=== PATIENT | female | born 1930 | race Caucasian/White ===

== ENCOUNTER → 2016-10-17 | Outpatient (CLI) | payer BC ==
[~2016-10-17] MED LIST: ASPCH81X PO; ATV/1 PO; CRS/10 PO; IRON PO; LISI-729 PO; MULT-506 PO; VITAMIN D PO
[2016-10-17 18:37] LABS: THYROID STIMULATING HORMONE 2.62 uIu/ml (0.300-4.500)
== END | disposition home or self-care (01) ==
LOC: C.LABBFT 11:28
PROVIDERS: ATTEND Physician Assistant Medical
DX: R20.0 Anesthesia of skin (principal)

== ENCOUNTER → 2016-11-19 | Outpatient (CLI) | payer BC ==
[2016-11-19 12:28] LABS: BASO ABS # 0.04 K/uL (0-0.2); COMPLETE YES; EOS % 2.1 %; HEMATOCRIT 37.8 % (37-47); LYMPH ABS # 1.37 K/uL (1.2-3.4); MEAN CELL VOLUME 94.3 fL (80-100); MEAN CORPUSCULAR HEMOGLOBIN 30.4 pg (25-34); MEAN CORPUSCULAR HGB CONC 32.3 g/dl (32-36); MEAN PLATELET VOLUME 10.2 fL (7.4-10.4); MONO % 10.5 %; NEUT % 50.4 %; PLATELET COUNT 222 K/uL (130-400); RED BLOOD COUNT 4.01 M/uL (4.2-5.4); WHITE BLOOD COUNT 3.81 K/uL (4.8-10.8)
[2016-11-19 12:35] LABS: ALT/SGPT 22 U/L (12-78); BLOOD UREA NITROGEN 18 mg/dl (7-18); BUN/CREATININE RATIO 20.2 (10-20); CALCIUM 9.5 mg/dl (8.5-10.1); CARBON DIOXIDE 30 mmol/L (21-32); CHLORIDE 105 mmol/L (98-107); CHOLESTEROL 215 mg/dl (0-200); CREATININE 0.88 mg/dl (0.60-1.20); GLUCOSE 91 mg/dl (70-99); POTASSIUM 4.3 mmol/L (3.5-5.1); SODIUM 140 mmol/L (136-145)
[2016-11-19 12:38] LABS: ALB/GLOB RATIO 1.1 (0.9-2); ALKALINE PHOSPHATASE 71 U/L (45-117); AST/SGOT 21 U/L (15-37); CHOLESTEROL/HDL RATIO 1.9; HDL CHOLESTEROL 113 mg/dl; LDL CHOLESTEROL CALCULATED 86 mg/dl; TRIGLYCERIDES 81 mg/dl (0-150); VERY LOW DENSITY LIPOPROT CALC 16 mg/dl
--- NOTE | 2016-11-26 07:29 | CODING QUERY MEDICAL NECESSITY ---
SUPPORTING DIAGNOSIS NEEDED A supporting diagnosis is required for the test/procedure performed on this patient in order for us to be reimbursed by the patient's insurance. Please provide a supporting diagnosis for the following test/procedure listed below next to the test name along with your signature. *If there is no additional diagnosis for this patient that would support the following test/procedure please document that below next to the test/procedure. Test(s)/Procedure(s) that require a supporting diagnosis: * VITAMIN B12 DIAGNOSIS: Provider Signature: Date: Thank you Brinda Dodson [facility] Information Management Once completed, please kindly fax back to [phone] For questions please call [phone]
== END | disposition home or self-care (01) ==
LOC: C.LABBFT 10:15
PROVIDERS: ATTEND Physician Assistant Medical
DX: R79.9 Abnormal finding of blood chemistry, unspecified (principal); C30.1 Malignant neoplasm of middle ear; E78.5 Hyperlipidemia, unspecified; E55.9 Vitamin D deficiency, unspecified

== ENCOUNTER → 2017-01-14 | Outpatient (CLI) | payer BC ==
--- NOTE | 2017-01-15 07:58 | MAMMOGRAPHY REPORT ---
BILATERAL DIGITAL SCREENING MAMMOGRAM WITH CAD: 01/14/2017 CLINICAL HISTORY: Routine screening. Patient has no complaints. TECHNIQUE: Bilateral CC, MLO and repeat left CC views were obtained. Current study was also evaluate d with a Computer Aided Detection (CAD) system. COMPARISON: Comparison is made to exams dated: 01/12/2016 mammogram, 01/10/2015 mammogram, 01/06/2014 m ammogram, 12/22/2012 mammogram, 12/20/2011 mammogram, and 12/10/2010 mammogram - [facility] nter. BREAST COMPOSITION: The tissue of both breasts is heterogeneously dense, which may obscure small mas ses. FINDINGS: There are minimal vascular calcifications and a few stable benign-appearing microcalcificat ions in the breasts. No suspicious mass, architectural distortion or cluster of suspicious microcalc ifications is seen. IMPRESSION: ACR BI-RADS CATEGORY 1: NEGATIVE There is no mammographic evidence of malignancy. A 1 year screening mammogram is recommended. The pa tient will receive written notification of the results. Approximately 10% of breast cancers are not detected with mammography. A negative mammographic report should not delay biopsy if a clinically suggestive mass is present. Angle Nolasco M.D. ay/:01/14/2017 15:52:36 Early Childhood Coordinator: Rama ZUNIGA)(M), [facility] letter sent: Normal 1/2 BI-RADS Code: ACR BI-RADS Category 1: Negative
== END | disposition home or self-care (01) ==
LOC: C.MAMM 12:28
PROVIDERS: ATTEND Internal Medicine
DX: Z12.31 Encounter for screening mammogram for malignant neoplasm of breast (principal)

== ENCOUNTER → 2017-03-03 | Outpatient (CLI) | payer BC ==
[2017-03-03 12:55] LABS: URINE APPEARANCE CLEAR (CLEAR); URINE BILIRUBIN NEG (NEG); URINE COLOR YELLOW; URINE NITRITE NEG (NEG); URINE PH 7.5 (4.5-7.5); URINE SPECIFIC GRAVITY 1.014 (1.000-1.030); UROBILINOGEN NEG (NEG); ZZUR CULT IF INDIC CLEAN CATCH NO
[2017-03-03 13:06] LABS: MANUAL MICROSCOPIC REQUIRED? NO; REVIEW REQ? NO
== END | disposition home or self-care (01) ==
LOC: C.LABBFT 10:21
PROVIDERS: ATTEND Nurse Practitioner
DX: R41.3 Other amnesia (principal)

== ENCOUNTER → 2017-03-10 | Outpatient (CLI) | payer BC ==
[2017-03-10 17:16] LABS: BLOOD UREA NITROGEN 15 mg/dl (7-18); CREATININE 0.81 mg/dl (0.60-1.20)
== END | disposition home or self-care (01) ==
LOC: C.LABBFT 11:34
PROVIDERS: ATTEND Nurse Practitioner
DX: R41.3 Other amnesia (principal)

== ENCOUNTER → 2017-03-17 | Outpatient (CLI) | payer BC ==
[~2017-03-17] MED LIST changes: +GADAVIST IV PRN
--- NOTE | 2017-03-17 16:47 | DIAGNOSTIC IMAGING REPORT ---
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 COMPARISON: Brain MR 04/11/2014, PET CT 04/18/2014 TECHNIQUE: Multiplanar multisequence MRI of the brain was obtained both with and without the use of 4.5 mL Gadavist FINDINGS: There is no restricted diffusion to suggest acute ischemia. Midline structures including the corpus callosum, brainstem, optic chiasm, pituitary and pineal gland are unremarkable in the sagittal T1 series. No cerebellar tonsillar herniation. Degenerative changes are seen involving the imaged cervical spine. There is moderate cerebral and cerebellar atrophy with chronic microvascular ischemic changes. Mass of the right middle ear cavity has mildly increased in size, now measuring 2.8 x 2.0 x 2.1 cm, previously measuring approximately 2.2 x 1.9 x 1.9 cm. Enhancing metastatic lesion of the right temporal lobe as seen on image 11 series 13 measuring up to 1.1 x 1.5 cm, previous a 1.3 x 1.1 cm. 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 Enhancing lesion of the inferior right cerebellar hemisphere measures 1.5 x 0.9 cm on image 16 series 13, previously 0.8 x 0.6 cm. Additional multifocal areas of enhancement are seen throughout the right cerebellar hemisphere have slightly progressed as seen on image 19 series 13. Vasogenic edema of the right temporal lobe and right cerebellar hemispheres redemonstrated. There is mild enhancement of the intracanicular portions of the 7th and 8th cranial nerves as seen on images 9 and 10 of series 10. There is thinning of the bilateral optic lenses. Chronic volume loss of the right maxillary sinus. IMPRESSION: 1. Findings compatible with progression of disease with interval enlargement of the previously noted heterogeneously enhancing mass of the right middle ear cavity. 2. 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 3. Enhancement of the intracanicular portions of the right 7th and 8th cranial nerves may reflect perineural spread of disease. 4. Atrophy with background chronic microvascular ischemic changes. The above report was generated using voice recognition software. It may contain grammatical, syntax or spelling errors. Electronically signed by: Lloyd Ayala M.D. 03/17/2017 4:45 PM Dictated Date/Time: 03/17/2017 2:11 PM
== END | disposition home or self-care (01) ==
LOC: C.MRI 12:56
PROVIDERS: ATTEND Nurse Practitioner
DX: C30.1 Malignant neoplasm of middle ear (principal); R41.3 Other amnesia; C79.31 Secondary malignant neoplasm of brain

== ENCOUNTER 2017-04-12 13:52 | Inpatient (IN) | payer BC, OTHER ==
[~2017-04-12] VITALS: Ht 160 cm; Wt 44.5 kg
[~2017-04-12 13:52] MED LIST changes: -GADAVIST IV PRN; +decadron
--- NOTE | 2017-04-12 14:13 | EMERGENCY ROOM VISIT NOTE ---
History Report prepared by Yadyibandres: Shanell Barbosa Under the Supervision of: Dr. Kenya Prakash D.O. First contact with patient: 14:00 Chief Complaint: CHEST PAIN Stated Complaint: CHEST PAIN,ABDOMINAL PAIN Nursing Triage Summary: chest pain started 1 hour ago got back from hair appt. pain in right abd and chest "just hurts". has had vertigo for past week also History of Present Illness The patient is an 86 year old female who presents to the Emergency Room with complaints of chest pain that started 2 hours prior to arrival. She is accompanied by her . She reports she had just gotten back home after a hair appointment and was eating a snack of grapes when the pain started. She rates her discomfort as a 7/10 in severity but notes it is completely resolved here in the ED. Her notes she ate eggs, a biscuit and tea for breakfast earlier today. The patient denies any shortness of breath. She admits to a history of vertigo and states her vertigo had been giving her problems this past 1 week. The patient admits her bowel movements have been "harder" for the past few days. She denies any urinary symptoms. She denies any history of previous MD's or heart issues. Her denies her looking pale or diaphoretic during the episode. Source of History: patient, spouse/significant other () Onset: 2 hours LOG CHECK SCALER Position: chest Symptom Intensity: 7/10 Timing: resolved Associated Symptoms: No diaphoresis, No SOB, No urinary symptoms Review of Systems See HPI for pertinent positives & negatives. A total of 10 systems reviewed and were otherwise negative. Past Medical & Surgical Medical Problems: (1) DVT (deep venous thrombosis) (2) GERD (gastroesophageal reflux disease) (3) Pulmonary embolism (4) Vertigo Social History Smoking Status: Former Smoker Alcohol Use: none Drug Use: none Marital Status: Housing Status: lives with family Occupation Status: retired Current/Historical Medications Scheduled Dexamethasone (Decadron), 4 MG PO TID Donepezil HCl (Donepezil HCl), 1 TAB PO DAILY Enoxaparin (Enoxaparin Sodium), 50 MG SQ PM Escitalopram Oxalate (Escitalopram Oxalate), 10 MG PO DAILY Hydralazine Hcl (Apresoline), 25 MG PO BID Lisinopril (Zestril), 5 MG PO QAM Lorazepam (Ativan), 1 MG PO HS Multivitamin (Multivitamin), 1 TAB PO QAM Pantoprazole (Pantoprazole Sodium), 40 MG PO QAM Rosuvastatin Calcium (Crestor), 10 MG PO HS Triamcinolone Acet (Aristocort 0.1%), 1 DOSE TOP DAILY Allergies Coded Allergies: No Known Allergies (Verified , `, 04/12/17) Physical Exam Vital Signs Date Time Temp Pulse Resp B/P (MAP) Pulse Ox O2 Delivery O2 Flow Rate FiO2 04/12/17 19:36 67 18 195/92 100 Room Air 04/12/17 18:44 74 16 185/90 100 Room Air 04/12/17 17:25 72 16 197/97 100 Room Air 04/12/17 15:25 70 20 163/76 100 Room Air 04/12/17 14:22 Room Air 04/12/17 14:11 74 04/12/17 13:54 36.6 77 18 161/66 98 Room Air Physical Exam GENERAL: alert, cachectic appearing, no distress, non-toxic, very hard of hearing, right sided facial droop, chronic per patient, secondary to prior radiation. EYE EXAM: normal conjunctiva, PERRL and EOM's grossly intact OROPHARYNX: no exudate, no erythema, lips, buccal mucosa, and tongue normal and mucous membranes are moist NECK: supple, no nuchal rigidity, no adenopathy, non-tender LUNGS: Clear to auscultation. Normal chest wall mechanics CHEST: No reproducible chest pain. Small tattooing from radiation noted in central chest. HEART: no murmurs, S1 normal and S2 normal ABDOMEN: abdomen soft, non-tender, normo-active bowel sounds, no masses, no rebound or guarding. BACK: Back is symmetrical on inspection and there is no deformity, no midline tenderness, no CVA tenderness. SKIN: no rashes and no bruising UPPER EXTREMITIES: upper extremities are grossly normal. LOWER EXTREMITIES: No pitting edema. NEURO EXAM: Normal sensorium, cranial nerves II-XII grossly intact, normal speech, no gross weakness of arms, no gross weakness of legs. Medical Decision & Procedures ER Provider Diagnostic Interpretation: Radiology results have been interpreted by the radiologist and reviewed by me. CHEST AND ABDOMEN 2 VIEWS HISTORY: upper abd pain, atypical chest pain COMPARISON: Chest CT 02/20/2017. FINDINGS: Mild diffuse interstitial thickening which is likely chronic. The heart is normal in size. Vertebroplasty seen at T12 is again noted. No change in the 2 cm lingular nodule. There are metallic fiducial markers adjacent to the nodule. No pleural effusions. No pneumothorax. The bowel gas pattern is unremarkable. No evidence for bowel obstruction. No pneumoperitoneum. No pneumatosis. No renal or ureteral calculi. Multiple pelvic phleboliths. Vascular calcifications are noted. Mild emphysema. IMPRESSION: 1. No acute process within the chest. 2. Stable 2 cm lingular nodule. 3. No evidence for bowel obstruction. Electronically signed by: Clarence Wills M.D. 04/12/2017 3:04 PM BILATERAL LOWER EXTREMITY VENOUS DOPPLER HISTORY: Pulmonary embolus. Assess for DVT. COMPARISON STUDY: None. FINDINGS: No DVT seen within the right lower cavity. There is nonocclusive DVT seen within the left popliteal vein. The remaining left lower extremity deep venous structures are patent. IMPRESSION: 1. No DVT within the right lower extremity. 2. Nonocclusive thrombus seen within the left popliteal vein. Electronically signed by: Clarence Wills M.D. 04/12/2017 6:12 PM CHEST CTA for PULMONARY ARTERIES CT DOSE: 425.28 mGy.cm HISTORY: Atypical chest pain. TECHNIQUE: Multiaxial CT images of the chest were performed following the intravenous administration of contrast to evaluate the pulmonary arteries. Maximal intensity projection images were also obtained. A dose lowering technique was utilized adhering to the principles of ALARA. COMPARISON STUDY: Chest CT 02/20/2017. FINDINGS: T12 vertebroplasty. Normal caliber thoracic aorta with no evidence for dissection. The heart is normal in size. No pleural effusions. Dilated left main pulmonary artery is again noted. This measures up to 3.4 cm. Mild motion artifact. This results in suboptimal evaluation of some of the segmental and subsegmental pulmonary arteries. The majority the pulmonary arteries appear patent. However, there is small peripheral filling defects seen within a few of the left lower lobe segmental/subsegmental pulmonary arteries is best seen on image 140. This is consistent with an age-indeterminate pulmonary embolus. There is also a filling defect seen within a lingular pulmonary artery on image 166 consistent with an additional embolus. No pneumothorax. Mild emphysema. Stable focal density within the medial base of the left lower lobe consistent with subsegmental atelectasis. Stable lobular 1.9 cm nodule within the lingula. No suspicious lytic or blastic osseous lesions. No mediastinal or hilar lymphadenopathy. IMPRESSION: 1. A few segmental/subsegmental pulmonary emboli seen within the lingula and left lower lobe. 2. No change in the dilated left main pulmonary artery. 3. Redemonstration of the 1.9 cm lobular nodule within the lingula. 4. Mild emphysema. Electronically signed by: Clarence Wills M.D. 04/12/2017 4:38 PM A[address]OMEN AND PELVIS CT WITH IV CONTRAST CT DOSE: HISTORY: upper abd pain TECHNIQUE: Multiaxial CT images of the abdomen and pelvis were performed following the use of intravenous contrast. A dose lowering technique was utilized adhering to the principles of ALARA. COMPARISON STUDY: Abdomen and pelvis CT 04/04/2015. FINDINGS: No pneumoperitoneum. No pneumatosis. No suspicious lytic or blastic osseous lesions. T12 vertebroplasty is again noted. Stable 13 mm left adrenal gland nodule. Moderate to severe thickening at the gastric antrum near the pylorus. This has progressed in the interval. There is also surrounding mild fat stranding. No perforation or abscess identified. The segment of wall thickening measures 3.7 cm in length. No evidence for gastric outlet obstruction at this time. Stable 1 cm hypodense lesion within the left hepatic lobe. This likely represents a cyst. The gallbladder, spleen, and pancreas are unremarkable. No hydronephrosis. The right kidney enhances normally. Stable 1 cm cyst within the left kidney. Normal right adrenal gland. No retroperitoneal lymphadenopathy. Right posterior bladder diverticulum, unchanged. Moderate calcified plaque within the normal caliber aorta and iliac arteries. Colonic diverticulosis. Normal appendix. IMPRESSION: 1. Progressive thickening of the gastric antrum/pylorus. This could represent a gastritis, peptic ulcer disease, or less likely a gastric mass. No evidence for perforation. Endoscopy is recommended for further evaluation. 2. No evidence for bowel obstruction. 3. Stable left adrenal nodule. Electronically signed by: Clarence Wills M.D. 04/12/2017 4:45 PM Laboratory Results Test 04/12/17 14:31 Prothrombin Time 10.0 SECONDS (9.0-12.0) Prothromb Time International Ratio 1.0 (0.9-1.1) D-Dimer 3080 ug/L FEU (0-500) Troponin I < 0.015 ng/ml (0-0.045) Pro-B-Type Natriuretic Peptide 310 pg/ml (0-1800) Lipase 468 U/L (73-393) Laboratory results per my review. Medications Administered Medications (Trade) Dose Ordered Sig/Zuly Route Start Time Stop Time Status Last Admin Dose Admin Enoxaparin Sodium (Lovenox Inj) 50 mg NOW STAT SQ 04/12/17 20:09 04/12/17 20:10 DC 04/12/17 20:32 50 MG ECG Indication: chest pain Rate (beats per minute): 72 Rhythm: normal sinus Findings: PVC, no ectopy ED Course 1405: The patient was evaluated in room A10. A complete history and physical exam was performed. 1645: I updated the patient on her imaging results. Her states she previously had a DVT, but has no history of PE. 1715: I discussed the patients case with Dr. Moy, [facility] Hospitalist. The patient will be further evaluated. 1725: I reevaluated the patient. I discussed my recommendation she remain in the hospital for further evaluation and management and she and her verbalized complete understanding and agreement. Her and her also note they followed with Dr. Willett of [facility] Hematology/Oncology. They are no longer pursuing chemotherapy/radiation but state her radiation had been done at [facility] in the past. 1837: I updated Dr. Mireles on doppler results and conversation with Dr. Willett. Medical Decision Differential diagnoses includes but is not limited to acute coronary syndrome, myocardial infarction, pericarditis, pulmonary embolus, aortic dissection, pneumonia, pneumothorax, musculoskeletal, shingles, esophageal. Edlerly pt with chronic malignancy of the right ear who had brief episode of abdominal/chest pain, nonradiating and with nausea but no other accompanying symptoms which resolved spontaneously prior to arrival. Labs reassuring, mild dehydration noted, pt found to have PE and DVT. Concern given mets noted on last MRI regarding anticoagulation of current condition. Discussed with Dr. Willett, feels pt can be normally anticoagulated and that she doesn't need transferred for an IVC filter. VS stable. No evidence of right heart strain. Medication Reconcilliation Current Medication List: was personally reviewed by me Blood Pressure Screening Patient's blood pressure: Elevated blood pressure Blood pressure disposition: Elevated BP felt to be situational Consults Time Called: 1710 Consulting Physician: Dr. Moy, [facility] Hospitalist Returned Call: 1715 I discussed the patients case with Dr. Moy, [facility] Hospitalist. The patient will be further evaluated. Additional Consults: Time Called: 183 Consulted Physician: Dr. Willett Returned Call: [phone] Additional Comments: Discussed pt's case with Dr. Willett. States pt's disease is stable. States she can be normally anticoagulated despite mets. Does not feel needs transferred for IVF filter. Impression Primary Impression: Chest pain Additional Impressions: Pulmonary embolism Malignant neoplasm of ear DVT (deep venous thrombosis) Scribe Attestation The scribe's documentation has been prepared under my direction and personally reviewed by me in its entirety. I confirm that the note above accurately reflects all work, treatment, procedures, and medical decision making performed by me. Departure Information Dispostion Being Evaluated By Hospitalist Prescriptions Pantoprazole (Pantoprazole Sodium) 40 Mg Tab 40 MG PO QAM for 30 Days, #30 TAB Prov: Krista Bain PA-C 04/13/17 Hydralazine Hcl (APRESOLINE) 25 Mg Tab 25 MG PO BID for 30 Days, #60 TAB Prov: Krista Bain PA-C 04/13/17 Enoxaparin (Enoxaparin Sodium) 60 Mg/0.6 Ml Inj 50 MG SQ PM for 30 Days Prov: Krista Bain PA-C 04/13/17 Referrals Fitz Serra M.D. (PCP) Patient Instructions My [facility] Problem Qualifiers Primary Impression: Chest pain Chest pain type: unspecified Qualified Codes: R07.9 - Chest pain, unspecified Additional Impressions: Pulmonary embolism Pulmonary embolism type: other Chronicity: acute Acute cor pulmonale presence: without acute cor pulmonale Qualified Codes: I26.99 - Other pulmonary embolism without acute cor pulmonale Malignant neoplasm of ear Laterality: right Qualified Codes: C44.202 - Unspecified malignant neoplasm of skin of right ear and external auricular canal DVT (deep venous thrombosis) DVT location: lower extremity Affected thrombotic vein of extremity: popliteal Chronicity: acute Laterality: left Qualified Codes: I82.432 - Acute embolism and thrombosis of left popliteal vein
[2017-04-12 14:41] LABS: BASO % 0.1 %; BASO ABS # 0.01 K/uL (0-0.2); COMPLETE YES; EOS % 0.4 %; HEMATOCRIT 34.5 % (37-47); IG% 0.2 %; LYMPH % 23.6 %; LYMPH ABS # 2.21 K/uL (1.2-3.4); MEAN CELL VOLUME 91.5 fL (80-100); MEAN CORPUSCULAR HEMOGLOBIN 30.8 pg (25-34); MEAN CORPUSCULAR HGB CONC 33.6 g/dl (32-36); MEAN PLATELET VOLUME 9.2 fL (7.4-10.4); MONO % 9.4 %; NEUT % 66.3 %; PLATELET COUNT 185 K/uL (130-400); RED BLOOD COUNT 3.77 M/uL (4.2-5.4); WHITE BLOOD COUNT 9.37 K/uL (4.8-10.8)
[2017-04-12 14:59] LABS: ALT/SGPT 28 U/L (12-78); BLOOD UREA NITROGEN 29 mg/dl (7-18); BUN/CREATININE RATIO 33.5 (10-20); CALCIUM 8.7 mg/dl (8.5-10.1); CARBON DIOXIDE 29 mmol/L (21-32); CHLORIDE 98 mmol/L (98-107); CREATININE 0.86 mg/dl (0.60-1.20); GLUCOSE 80 mg/dl (70-99); POTASSIUM 3.9 mmol/L (3.5-5.1); SODIUM 133 mmol/L (136-145)
[2017-04-12 15:04] LABS: ALKALINE PHOSPHATASE 67 U/L (45-117); AST/SGOT 17 U/L (15-37)
--- NOTE | 2017-04-12 15:06 | DIAGNOSTIC IMAGING REPORT ---
CHEST AND ABDOMEN 2 VIEWS HISTORY: upper abd pain, atypical chest pain COMPARISON: Chest CT 02/20/2017. FINDINGS: Mild diffuse interstitial thickening which is likely chronic. The heart is normal in size. Vertebroplasty seen at T12 is again noted. No change in the 2 cm lingular nodule. There are metallic fiducial markers adjacent to the nodule. No pleural effusions. No pneumothorax. The bowel gas pattern is unremarkable. No evidence for bowel obstruction. No pneumoperitoneum. No pneumatosis. No renal or ureteral calculi. Multiple pelvic phleboliths. Vascular calcifications are noted. Mild emphysema. IMPRESSION: 1. No acute process within the chest. 2. Stable 2 cm lingular nodule. 3. No evidence for bowel obstruction. Electronically signed by: Clarence Wills M.D. 04/12/2017 3:04 PM Dictated Date/Time: 04/12/2017 3:01 PM
[2017-04-12] MEDS ORDERED: OMEP20TA PO (15:41)
[2017-04-12] MEDS ORDERED: ARC5 PO (15:41)
[2017-04-12] MEDS ORDERED: LXP10 PO (15:41)
[2017-04-12] MEDS ORDERED: DXM/4 PO (15:41)
[2017-04-12] MEDS ORDERED: TRMCR130WC TOP (15:42)
[2017-04-12] MEDS ORDERED: OPTIRAY 320 IV PRN (16:30)
--- NOTE | 2017-04-12 16:39 | DIAGNOSTIC IMAGING REPORT ---
CHEST CTA for PULMONARY ARTERIES CT DOSE: 425.28 mGy.cm HISTORY: Atypical chest pain. TECHNIQUE: Multiaxial CT images of the chest were performed following the intravenous administration of contrast to evaluate the pulmonary arteries. Maximal intensity projection images were also obtained. A dose lowering technique was utilized adhering to the principles of ALARA. COMPARISON STUDY: Chest CT 02/20/2017. FINDINGS: T12 vertebroplasty. Normal caliber thoracic aorta with no evidence for dissection. The heart is normal in size. No pleural effusions. Dilated left main pulmonary artery is again noted. This measures up to 3.4 cm. Mild motion artifact. This results in suboptimal evaluation of some of the segmental and subsegmental pulmonary arteries. The majority the pulmonary arteries appear patent. However, there is small peripheral filling defects seen within a few of the left lower lobe segmental/subsegmental pulmonary arteries is best seen on image 140. This is consistent with an age-indeterminate pulmonary embolus. There is also a filling defect seen within a lingular pulmonary artery on image 166 consistent with an additional embolus. No pneumothorax. Mild emphysema. Stable focal density within the medial base of the left lower lobe consistent with subsegmental atelectasis. Stable lobular 1.9 cm nodule within the lingula. No suspicious lytic or blastic osseous lesions. No mediastinal or hilar lymphadenopathy. IMPRESSION: 1. A few segmental/subsegmental pulmonary emboli seen within the lingula and left lower lobe. 2. No change in the dilated left main pulmonary artery. 3. Redemonstration of the 1.9 cm lobular nodule within the lingula. 4. Mild emphysema. Electronically signed by: Clarence Wills M.D. 04/12/2017 4:38 PM Dictated Date/Time: 04/12/2017 4:27 PM
--- NOTE | 2017-04-12 16:46 | DIAGNOSTIC IMAGING REPORT ---
ABDOMEN AND PELVIS CT WITH IV CONTRAST CT DOSE: HISTORY: upper abd pain TECHNIQUE: Multiaxial CT images of the abdomen and pelvis were performed following the use of intravenous contrast. A dose lowering technique was utilized adhering to the principles of ALARA. COMPARISON STUDY: Abdomen and pelvis CT 04/04/2015. FINDINGS: No pneumoperitoneum. No pneumatosis. No suspicious lytic or blastic osseous lesions. T12 vertebroplasty is again noted. Stable 13 mm left adrenal gland nodule. Moderate to severe thickening at the gastric antrum near the pylorus. This has progressed in the interval. There is also surrounding mild fat stranding. No perforation or abscess identified. The segment of wall thickening measures 3.7 cm in length. No evidence for gastric outlet obstruction at this time. Stable 1 cm hypodense lesion within the left hepatic lobe. This likely represents a cyst. The gallbladder, spleen, and pancreas are unremarkable. No hydronephrosis. The right kidney enhances normally. Stable 1 cm cyst within the left kidney. Normal right adrenal gland. No retroperitoneal lymphadenopathy. Right posterior bladder diverticulum, unchanged. Moderate calcified plaque within the normal caliber aorta and iliac arteries. Colonic diverticulosis. Normal appendix. IMPRESSION: 1. Progressive thickening of the gastric antrum/pylorus. This could represent a gastritis, peptic ulcer disease, or less likely a gastric mass. No evidence for perforation. Endoscopy is recommended for further evaluation. 2. No evidence for bowel obstruction. 3. Stable left adrenal nodule. Electronically signed by: Clarence Wills M.D. 04/12/2017 4:45 PM Dictated Date/Time: 04/12/2017 4:38 PM
--- NOTE | 2017-04-12 18:14 | DIAGNOSTIC IMAGING REPORT ---
BILATERAL LOWER EXTREMITY VENOUS DOPPLER HISTORY: Pulmonary embolus. Assess for DVT. COMPARISON STUDY: None. FINDINGS: No DVT seen within the right lower cavity. There is nonocclusive DVT seen within the left popliteal vein. The remaining left lower extremity deep venous structures are patent. IMPRESSION: 1. No DVT within the right lower extremity. 2. Nonocclusive thrombus seen within the left popliteal vein. Electronically signed by: Clarence Wills M.D. 04/12/2017 6:12 PM Dictated Date/Time: 04/12/2017 6:11 PM
[2017-04-12] MEDS ORDERED: HydrALAZINE HCL 20 MG/ML VIAL IV. PRN (20:00)
[2017-04-12] MEDS ORDERED: ENOXAPARIN 60 MG/0.6 ML SYR SQ STA (20:09)
[2017-04-12] MEDS ORDERED: MAGNESIUM HYDROXIDE SUSP 30 ML UDC PO PRN (20:15)
[2017-04-12] MEDS ORDERED: ONDANSETRON INJ 2 MG/ML 2 ML VIAL IV PRN (20:15)
[2017-04-12] MEDS ORDERED: ACETAMINOPHEN 325 MG TAB PO PRN (20:15)
[2017-04-12] MEDS ORDERED: ALUMINUM/MAGNESIUM/SIMETH (MAALOX MAX) 30 ML UDC PO PRN (20:15)
[2017-04-12] MEDS ORDERED: POLYETHYLENE (MIRALAX) 17 GM PACK PO PRN (20:15)
[2017-04-12] MEDS ORDERED: ZOLPIDEM TARTRATE 5 MG TAB PO PRN ×2 (20:15)
--- NOTE | 2017-04-12 20:25 | History and Physical ---
History & Physical Date & Time of Service: Apr 12, 2017 at 19:40 Chief Complaint: Chest Pain,Abdominal Pain Primary Care Physician: Fitz Serra M.D. History of Present Illness Source: patient, family, partner 86 years old female with significant past medical history as will be mentioned below. Presented to the ED with sudden onset epigastric pain that was referred to her substernal area. Pain was localized, sudden onset, appears to be squeezing in character. No associated relieving factor. By the time she arrived to ED pain was all gone. ED physician order d-dimer, that was elevated, CT angiogram showed multiple pulmonary embolism, oxygen saturation was normal at RA Ultrasound lower extremity showed nonobstructive DVT as will be specified below. 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 Status post chemotherapy and radiation . 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 MRI of the brain last month did not reveal new brain metastases but showed some progression in her right middle ear mass and her brain metastases. heterogeneously enhancing mass of the right middle ear Past Medical/Surgical History Medical Problems: (1) DVT (deep venous thrombosis) Status: Resolved Social History Smoking Status: Former Smoker Drug Use: none Marital Status: Occupational Status: retired Immunizations History of Influenza Vaccine: N/A History of Tetanus Vaccine?: Yes History of Pneumococcal: Yes History of Hepatitis B Vaccine: No Multi-Drug Resistant Organisms History of MDRO: No Allergies Coded Allergies: No Known Allergies (Verified , `, 04/12/17) Home Medications Scheduled Aspirin (Aspirin Chewable), 81 MG PO HS Dexamethasone (Decadron), 4 MG PO TID Donepezil HCl (Donepezil HCl), 1 TAB PO DAILY Escitalopram Oxalate (Escitalopram Oxalate), 10 MG PO DAILY Lisinopril (Zestril), 5 MG PO QAM Lorazepam (Ativan), 1 MG PO HS Multivitamin (Multivitamin), 1 TAB PO QAM Omeprazole (Omeprazole), 1 TAB PO DAILY Rosuvastatin Calcium (Crestor), 10 MG PO HS Triamcinolone Acet (Aristocort 0.1%), 1 DOSE TOP DAILY Review of Systems Constitutional: No fever, No chills, No sweats, No weight loss, No weakness, No fatigue, No problem reported Eyes: No worsening of vision, No eye pain, No redness, No discharge, No diplopia, No problem reported ENT: No hearing loss, No unusual epistaxis, No nasal symptoms, No sore throat, No tinnitus, No dental problems, No trouble swallowing, No problem reported Respiratory: No cough, No sputum, No wheezing, No shortness of breath, No dyspnea on exertion, No dyspnea at rest, No hemoptysis, No problem reported Cardiovascular: + chest pain, No orthopnea, No PND, No edema, No claudication, No palpitations, No problem reported Abdomen: + pain, No nausea, No vomiting, No diarrhea, No constipation, No GI bleeding, No problem reported Musculoskeletal: No joint pain, No muscle pain, No swelling, No calf pain, No problem reported Genitourinary - Female: No dysuria, No urinary frequency, No urinary urgency, No urinary incontinence, No urinary retention, No hematuria, No dysmenorrhea, No menorrhagia, No metrorrhagia, No rash, No vaginal bleeding, No vaginal discharge, No vaginal itching, No vulvodynia, No , No problem reported Neurologic: + problem reported ( right fascial palsy), No memory loss, No paralysis, No weakness, No numbness/tingling, No vertigo, No balance problems Psychiatric: No depression symptoms, No anhedonism, No anxiety, No insomnia, No substance abuse, No problem reported Endocrine: No fatigue, No excessive thirst, No excessive urination, No problem reported Hematologic / Lymphatic: No abnormal bleeding/bruising, No clotting problems, No swollen lymph nodes, No night sweats, No problem reported Integumentary: No rash, No itch, No new/changing skin lesions, No color change , No bleeding, No problem reported Allergic / Immunologic: No environmental allergies, No seasonal allergies, No pet sensitivities, No food allergies, No hives, No frequent infections, No poor healing, No prolonged convalescence, No problem reported Physical Exam Vital Signs Date Time Temp Pulse Resp B/P (MAP) Pulse Ox O2 Delivery O2 Flow Rate FiO2 04/12/17 19:36 67 18 195/92 100 Room Air 04/12/17 18:44 74 16 185/90 100 Room Air 04/12/17 17:25 72 16 197/97 100 Room Air 04/12/17 15:25 70 20 163/76 100 Room Air 04/12/17 14:22 Room Air 04/12/17 14:11 74 04/12/17 13:54 36.6 77 18 161/66 98 Room Air General Appearance: WD/WN, no apparent distress Head: normocephalic, atraumatic Eyes: normal inspection, EOMI ENT: normal ENT inspection, + pertinent finding (decreased hearing) Neck: supple Respiratory/Chest: chest non-tender, lungs clear, normal breath sounds, no respiratory distress, no accessory muscle use Cardiovascular: regular rate, rhythm, no edema, no gallop, no JVD, no murmur Abdomen/GI: normal bowel sounds, non tender, soft, no organomegaly, no pulsatile mass Back: normal inspection Extremities/Musculoskelatal: normal inspection, no calf tenderness, normal capillary refill, no pedal edema, normal range of motion Neurologic/Psych: no motor/sensory deficits, alert, normal mood/affect, oriented x 3, + facial droop (right facial droop) Skin: normal color, warm/dry, no rash Diagnostics Laboratory Results Results Past 24 Hours Test 04/12/17 14:31 Range/Units White Blood Count 9.37 4.8-10.8 K/uL Red Blood Count 3.77 4.2-5.4 M/uL Hemoglobin 11.6 12.0-16.0 g/dL Hematocrit 34.5 37-47 % Mean Corpuscular Volume 91.5 80-100 fL Mean Corpuscular Hemoglobin 30.8 25-34 pg Mean Corpuscular Hemoglobin Concent 33.6 32-36 g/dl Platelet Count 185 130-400 K/uL Mean Platelet Volume 9.2 7.4-10.4 fL Neutrophils (%) (Auto) 66.3 % Lymphocytes (%) (Auto) 23.6 % Monocytes (%) (Auto) 9.4 % Eosinophils (%) (Auto) 0.4 % Basophils (%) (Auto) 0.1 % Neutrophils # (Auto) 6.21 1.4-6.5 K/uL Lymphocytes # (Auto) 2.21 1.2-3.4 K/uL Monocytes # (Auto) 0.88 0.11-0.59 K/uL Eosinophils # (Auto) 0.04 0-0.5 K/uL Basophils # (Auto) 0.01 0-0.2 K/uL RDW Standard Deviation 50.9 36.4-46.3 fL RDW Coefficient of Variation 15.1 11.5-14.5 % Immature Granulocyte % (Auto) 0.2 % Immature Granulocyte # (Auto) 0.02 0.00-0.02 K/uL Prothrombin Time 10.0 9.0-12.0 SECONDS Prothromb Time International Ratio 1.0 0.9-1.1 D-Dimer 3080 0-500 ug/L FEU Sodium Level 133 136-145 mmol/L Potassium Level 3.9 3.5-5.1 mmol/L Chloride Level 98 98-107 mmol/L Carbon Dioxide Level 29 21-32 mmol/L Anion Gap 6.0 3-11 mmol/L Blood Urea Nitrogen 29 7-18 mg/dl Creatinine 0.86 0.60-1.20 mg/dl Est Creatinine Clear Calc Drug Dose 34.0 ml/min Estimated GFR () 71.4 Estimated GFR (Non- 61.6 BUN/Creatinine Ratio 33.5 10-20 Random Glucose 80 70-99 mg/dl Calcium Level 8.7 8.5-10.1 mg/dl Total Bilirubin 0.6 0.2-1 mg/dl Aspartate Amino Transf (AST/SGOT) 17 15-37 U/L Alanine Aminotransferase (ALT/SGPT) 28 12-78 U/L Alkaline Phosphatase 67 45-117 U/L Troponin I < 0.015 0-0.045 ng/ml Pro-B-Type Natriuretic Peptide 310 0-1800 pg/ml Total Protein 6.8 6.4-8.2 gm/dl Albumin 3.4 3.4-5.0 gm/dl Globulin 3.4 2.5-4.0 gm/dl Albumin/Globulin Ratio 1.0 0.9-2 Lipase 468 73-393 U/L Impression Assessment and Plan left segmental/subsegmental pulmonary emboli Left lower extremity nonobstructive DVT 1.9 cm lobular nodule within the lingula on chest CTA Thickening of pylorus/antrum, could represent peptic ulcer disease versus unlikely mass 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 Willett, regarding her anticoagulation Appears that the MRI done last month that reported progression in her brain metastases was comparing the images with another one in 2014. Based on more recent comparison there appears to be no progression in her brain metastasis. Despite of risk of bleeding that the patient and the family understands, Dr. Willett thought that the benefit of anticoagulation would outweighs the risk. I explained to the family the potential risk of bleeding. Both Dr. Willett and myself agreed to anticoagulate her with Lovenox in order to underdose her rather than full dose anticoagulation with heparin I also ordered antifactor X level 4 hours after the Lovenox dose, the goal for anticoagulation is too slightly underdose her. Ilana patient should receive protamine sulfate at the first sign of deterioration. I also added hydralazine for her home antihypertensive medication/which is lisinopril in order to better control her pressure while she is on anticoagulation. If she do well then maybe in 1 or 2 days she can be discharged on also underdosing with Eliquis 2.5 twice a day, as she is 86 and her weight is only 45 kg, also worth mentioning that she has normal muscle mass and creatinine level is not a true representation of her renal function. Her 1.9 cm lung nodule, her thickening of her antrum and pylorus of the stomach can be addressed after her anticoagulation is stabilized. We'll order labs for a.m. Further recommendation will follow
[2017-04-12 20:55] VITALS: BP 198/89; PULSE 74; TEMP 36.7; O2SAT 99; Ht 160 cm; Wt 44.5 kg
[2017-04-12] MEDS ORDERED: LORAZEPAM 1 MG TAB PO SCH (21:00)
[2017-04-12] MEDS ORDERED: ROSUVASTATIN CALCIUM 10 MG TAB PO SCH (21:00)
[2017-04-12] MEDS: DEXAMETHASONE 4 MG TAB PO SCH (22:34)
[2017-04-13 00:16] VITALS: BP 106/52; PULSE 70; TEMP 36.7; O2SAT 98
[2017-04-13 04:20] VITALS: BP 130/65; PULSE 69; TEMP 36.4; O2SAT 98
[2017-04-13 06:07] LABS: COMPLETE YES; EOS % 0.2 %; HEMATOCRIT 32.2 % (37-47); IG% 0.2 %; LYMPH ABS # 0.71 K/uL (1.2-3.4); MEAN CELL VOLUME 90.4 fL (80-100); MEAN CORPUSCULAR HEMOGLOBIN 30.6 pg (25-34); MEAN CORPUSCULAR HGB CONC 33.9 g/dl (32-36); MEAN PLATELET VOLUME 9.4 fL (7.4-10.4); NEUT % 84.6 %; PLATELET COUNT 191 K/uL (130-400); RED BLOOD COUNT 3.56 M/uL (4.2-5.4); WHITE BLOOD COUNT 5.46 K/uL (4.8-10.8)
[2017-04-13 06:36] LABS: BUN/CREATININE RATIO 39.3 (10-20); CALCIUM 8.3 mg/dl (8.5-10.1); CREATININE 0.67 mg/dl (0.60-1.20); MAGNESIUM 2.3 mg/dl (1.8-2.4); POTASSIUM 4.5 mmol/L (3.5-5.1)
[2017-04-13 07:45] VITALS: BP 130/72; PULSE 73; TEMP 36.6; O2SAT 98
[2017-04-13] MEDS ORDERED: TRIAMCINOLONE ACET 0.1% CR 15 GM TUBE EXT SCH (09:00)
[2017-04-13] MEDS ORDERED: LISINOPRIL 5 MG TAB PO SCH (09:00)
[2017-04-13] MEDS ORDERED: PANTOprazole SOD 40 MG TAB PO SCH (09:00)
[2017-04-13] MEDS ORDERED: DONEPEZIL HCL 5 MG TAB PO SCH (09:00)
[2017-04-13] MEDS ORDERED: ESCITALOPRAM OXALATE 10 MG TAB PO SCH (09:00)
[2017-04-13] MEDS ORDERED: MULTIVITAMIN TAB PO SCH (09:00)
[2017-04-13] MEDS: DEXAMETHASONE 4 MG TAB PO SCH ×3 (09:06→16:45)
[2017-04-13 11:49] VITALS: BP 122/71; PULSE 74; TEMP 36.6; O2SAT 97
[2017-04-13] MEDS ORDERED: APR25 PO (13:45)
[2017-04-13] MEDS ORDERED: LVNIS60 SQ (13:45)
[2017-04-13] MEDS ORDERED: PRT40 PO (13:45)
--- NOTE | 2017-04-13 14:05 | Discharge Summary ---
Discharge Summary Date of Service Apr 13, 2017. 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 FINDINGS: Mild diffuse interstitial thickening which is likely chronic. The heart is normal in size. Vertebroplasty seen at T12 is again noted. No change in the 2 cm lingular nodule. There are metallic fiducial markers adjacent to the nodule. No pleural effusions. No pneumothorax. The bowel gas pattern is unremarkable. No evidence for bowel obstruction. No pneumoperitoneum. No pneumatosis. No renal or ureteral calculi. Multiple pelvic phleboliths. Vascular calcifications are noted. Mild emphysema. IMPRESSION: 1. No acute process within the chest. 2. Stable 2 cm lingular nodule. 3. No evidence for bowel obstruction. Electronically signed by: Clarence Wills M.D. 04/12/2017 3:04 PM Dictated Date/Time: 04/12/2017 3:01 PM The status of this report is Signed. Draft = Not yet reviewed or approved by Radiologist. Signed = Reviewed and approved by Radiologist. CHEST CTA for PULMONARY ARTERIES CT DOSE: 425.28 mGy.cm HISTORY: Atypical chest pain. TECHNIQUE: Multiaxial CT images of the chest were performed following the intravenous administration of contrast to evaluate the pulmonary arteries. Maximal intensity projection images were also obtained. A dose lowering technique was utilized adhering to the principles of ALARA. COMPARISON STUDY: Chest CT 02/20/2017. FINDINGS: T12 vertebroplasty. Normal caliber thoracic aorta with no evidence for dissection. The heart is normal in size. No pleural effusions. Dilated left main pulmonary artery is again noted. This measures up to 3.4 cm. Mild motion artifact. This results in suboptimal evaluation of some of the segmental and subsegmental pulmonary arteries. The majority the pulmonary arteries appear patent. However, there is small peripheral filling defects seen within a few of the left lower lobe segmental/subsegmental pulmonary arteries is best seen on image 140. This is consistent with an age-indeterminate pulmonary embolus. There is also a filling defect seen within a lingular pulmonary artery on image 166 consistent with an additional embolus. No pneumothorax. Mild emphysema. Stable focal density within the medial base of the left lower lobe consistent with subsegmental atelectasis. Stable lobular 1.9 cm nodule within the lingula. No suspicious lytic or blastic osseous lesions. No mediastinal or hilar lymphadenopathy. IMPRESSION: 1. A few segmental/subsegmental pulmonary emboli seen within the lingula and left lower lobe. 2. No change in the dilated left main pulmonary artery. 3. Redemonstration of the 1.9 cm lobular nodule within the lingula. 4. Mild emphysema. Electronically signed by: Clarence Wills M.D. 04/12/2017 4:38 PM Dictated Date/Time: 04/12/2017 4:27 PM The status of this report is Signed. Draft = Not yet reviewed or approved by Radiologist. Signed = Reviewed and approved by Radiologist. ABDOMEN AND PELVIS CT WITH IV CONTRAST CT DOSE: HISTORY: upper abd pain TECHNIQUE: Multiaxial CT images of the abdomen and pelvis were performed following the use of intravenous contrast. A dose lowering technique was utilized adhering to the principles of ALARA. COMPARISON STUDY: Abdomen and pelvis CT 04/04/2015. FINDINGS: No pneumoperitoneum. No pneumatosis. No suspicious lytic or blastic osseous lesions. T12 vertebroplasty is again noted. Stable 13 mm left adrenal gland nodule. Moderate to severe thickening at the gastric antrum near the pylorus. This has progressed in the interval. There is also surrounding mild fat stranding. No perforation or abscess identified. The segment of wall thickening measures 3.7 cm in length. No evidence for gastric outlet obstruction at this time. Stable 1 cm hypodense lesion within the left hepatic lobe. This likely represents a cyst. The gallbladder, spleen, and pancreas are unremarkable. No hydronephrosis. The right kidney enhances normally. Stable 1 cm cyst within the left kidney. Normal right adrenal gland. No retroperitoneal lymphadenopathy. Right posterior bladder diverticulum, unchanged. Moderate calcified plaque within the normal caliber aorta and iliac arteries. Colonic diverticulosis. Normal appendix. IMPRESSION: 1. Progressive thickening of the gastric antrum/pylorus. This could represent a gastritis, peptic ulcer disease, or less likely a gastric mass. No evidence for perforation. Endoscopy is recommended for further evaluation. 2. No evidence for bowel obstruction. 3. Stable left adrenal nodule. Electronically signed by: Clarence Wills M.D. 04/12/2017 4:45 PM Dictated Date/Time: 04/12/2017 4:38 PM The status of this report is Signed. Draft = Not yet reviewed or approved by Radiologist. Signed = Reviewed and approved by Radiologist. BILATERAL LOWER EXTREMITY VENOUS DOPPLER HISTORY: Pulmonary embolus. Assess for DVT. COMPARISON STUDY: None. FINDINGS: No DVT seen within the right lower cavity. There is nonocclusive DVT seen within the left popliteal vein. The remaining left lower extremity deep venous structures are patent. IMPRESSION: 1. No DVT within the right lower extremity. 2. Nonocclusive thrombus seen within the left popliteal vein. Electronically signed by: Clarence Wills M.D. 04/12/2017 6:12 PM Dictated Date/Time: 04/12/2017 6:11 PM The status of this report is Signed. Draft = Not yet reviewed or approved by Radiologist. Signed = Reviewed and approved by Radiologist. Medication Reconciliation New Medications: Enoxaparin (Enoxaparin Sodium) 60 Mg/0.6 Ml Inj 50 MG SQ PM for 30 Days Hydralazine Hcl (Apresoline) 25 Mg Tab 25 MG PO BID for 30 Days, #60 TAB Pantoprazole (Pantoprazole Sodium) 40 Mg Tab 40 MG PO QAM for 30 Days, #30 TAB Continued Medications: Dexamethasone (Decadron) 4 Mg Tab 4 MG PO TID Donepezil HCl (Donepezil HCl) 5 Mg Tab 1 TAB PO DAILY Escitalopram Oxalate (Escitalopram Oxalate) 10 Mg Tab 10 MG PO DAILY Lisinopril (Zestril) 5 Mg Tab 5 MG PO QAM, TAB Lorazepam (Ativan) 1 Mg Tab 1 MG PO HS, TAB Multivitamin (Multivitamin) Tab 1 TAB PO QAM, TAB Rosuvastatin Calcium (Crestor) 10 Mg Tab 10 MG PO HS, TAB Triamcinolone Acet (Aristocort 0.1%) 90 Appln/30 Gm Cr 1 DOSE TOP DAILY Discontinued Medications: Aspirin (Aspirin Chewable) 81 Mg Chew 81 MG PO HS, TAB Omeprazole (Omeprazole) 20 Mg Tab 1 TAB PO DAILY for 90 Days, #90 TAB 3 Refills Referrals At Discharge Follow up Referrals: Family Practice Referral - Within 1-2 Weeks with Fitz Serra M.D. Oncology/Hematology Referral - Within 1-2 Weeks with Veeral. Willett MD Discharge Exam Review of Systems: Constitutional: No fever, No chills, No sweats, No weakness, No fatigue Eyes: No worsening of vision ENT: No hearing loss Respiratory: No cough, No shortness of breath, No dyspnea on exertion, No hemoptysis Cardiovascular: No chest pain, No edema, No palpitations Abdomen: No pain, No nausea, No vomiting, No diarrhea, No constipation Musculoskeletal: No joint pain, No muscle pain, No swelling, No calf pain Genitourinary - Female: No dysuria, No hematuria Neurologic: No weakness, No numbness/tingling Psychiatric: No depression symptoms, No anxiety Endocrine: No fatigue Hematologic / Lymphatic: No abnormal bleeding/bruising Integumentary: No rash, No itch, No new/changing skin lesions Physical Exam: General Appearance: no apparent distress, + thin Eyes: normal inspection, PERRL ENT: + pertinent finding (BI[place] SLOUGH) Neck: supple Respiratory/Chest: lungs clear, no respiratory distress, no accessory muscle use Cardiovascular: regular rate, rhythm Abdomen / GI: normal bowel sounds, non tender, soft Extremities: no calf tenderness, no pedal edema Neurologic/Psychiatric: alert, normal mood/affect, oriented x 3, + pertinent finding (+R facial droop ) Skin: normal color, warm/dry, no rash Hospital Course Admission H&P: 86 years old female with significant past medical history as will be mentioned below. Presented to the ED with sudden onset epigastric pain that was referred to her substernal area. Pain was localized, sudden onset, appears to be squeezing in character. No associated relieving factor. By the time she arrived to ED pain was all gone. ED physician order d-dimer, that was elevated, CT angiogram showed multiple pulmonary embolism, oxygen saturation was normal at RA Ultrasound lower extremity showed nonobstructive DVT as will be specified below. 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 Status post chemotherapy and radiation . 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 MRI of the brain last month did not reveal new brain metastases but showed some progression in her right middle ear mass and her brain metastases. heterogeneously enhancing mass of the right middle ear Physical Exam Vital Signs Date Time Temp Pulse Resp B/P (MAP) Pulse Ox O2 Delivery O2 Flow Rate FiO2 04/12/17 19:36 67 18 195/92 100 Room Air 04/12/17 18:44 74 16 185/90 100 Room Air 04/12/17 17:25 72 16 197/97 100 Room Air 04/12/17 15:25 70 20 163/76 100 Room Air 04/12/17 14:22 Room Air 04/12/17 14:11 74 04/12/17 13:54 36.6 77 18 161/66 98 Room Air General Appearance: WD/WN, no apparent distress Head: normocephalic, atraumatic Eyes: normal inspection, EOMI ENT: normal ENT inspection, + pertinent finding (decreased hearing) Neck: supple Respiratory/Chest: chest non-tender, lungs clear, normal breath sounds, no respiratory distress, no accessory muscle use Cardiovascular: regular rate, rhythm, no edema, no gallop, no JVD, no murmur Abdomen/GI: normal bowel sounds, non tender, soft, no organomegaly, no pulsatile mass Back: normal inspection Extremities/Musculoskelatal: normal inspection, no calf tenderness, normal capillary refill, no pedal edema, normal range of motion Neurologic/Psych: no motor/sensory deficits, alert, normal mood/affect, oriented x 3, + facial droop (right facial droop) Skin: normal color, warm/dry, no rash Hospital Course: L segmental/subsegmental pulmonary emboli, L lower extremity nonobstructive DVT: - Admitted to tele for cardiac monitoring- no acute events - Discussed w/ oncologist, Dr. 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 Willett Stable 1.9 cm lobular nodule within the lingula on chest CTA Thickening of pylorus/antrum, h/o GERD: - Protonix 40 mg daily - f/u w/ PCP- may need GI referral HTN: - Lisinopril 5 mg daily - Started Hydralazine 25 mg BID due to elevated BP at admission- well controlled after initiating medication HLD: Crestor 10 mg daily Anxiety: Continue Ativan and Lexapro Cognitive dysfunction: Continue Aricept Right facial palsy- noted GI prophylaxis: Protonix daily DVT prophylaxis: Lovenox SQ daily Code Status: LEVEL I, FULL Dispo: Discharge to home w/ [facility] - Worked w/ PT prior to discharge- instructed to use walker w/ ambulation at all times Total Time Spent: Greater than 30 minutes This includes examination of the patient, discharge planning, medication reconciliation, and communication with other providers. Discharge Instructions Please refer to the electronic Patient Visit Report (Discharge Instructions) for additional information. Follow-Up Please follow-up with your PCP within 5-7 days Please follow-up with Dr. Willett within the next 1-2 weeks Please follow-up/keep all of your subspecialty appointments Additional Copies To Fitz Serra M.D. Reviewed: Pt Seen/Exam by Me History Pt is feeling much improved and is anxious for d/c home today. No longer have abd pain or chest pain. Has eaten breakfast and lunch without issue. No SOB. Family is present and agrees. Agree with HPI/ROS as noted by PAC General Appearance: no apparent distress, thin Eye Exam: right eye other (increased tearing) Respiratory: normal breath sounds, no respiratory distress Cardiovascular: normal peripheral pulses, regular rate, rhythm Gastrointestinal: non tender, soft Extremities: non-tender, no pedal edema Neurologic/Psychiatric: alert, normal mood/affect, oriented x 3, facial droop ( R sided) Skin Characteristics: normal color, warm/dry Assessment/Plan Agree with plan as outlined above DVT/PE, planning for low dose lovenox tx due to brain mets felt to stem from SCC of R ear Discussed with family HH for assistance in this PT/OT feel fine for home, did advised to d/c cane and switch to walker. Son had already purchased this for pt
--- NOTE | 2017-04-13 14:12 | Discharge Instructions ---
Discharge Instructions Date of Service Apr 13, 2017. Admission Reason for Admission: Pulmonary Embolism Discharge Discharge Diagnosis / Problem: (1) Pulmonary embolism (2) DVT (deep venous thrombosis) VTE Date & Time Date of VTE Diagnosis: Apr 12, 2017 Time of VTE Diagnosis: 16:30 Discharge Goals Goal(s): Decrease discomfort, Improve function, Improve disease control, Learn about illness, Diagnostic testing, Therapeutic intervention, Prevent Disease Progression Activity Recommendations Activity Limitations: resume your previous activity . Instructions / Follow-Up Instructions / Follow-Up Pulmonary embolism (blood clot of lungs) and DVT (blood clot in leg): You will require Lovenox 50 mg injections daily STOP Aspirin daily Home health services has been setup to help you with your daily injections High blood pressure: For additional blood pressure control, please take Hydralazine 25 mg twice daily It is recommended you take your blood pressure 1-2 times daily and keep a log Take this log to your PCP at f/u- this will further help make medication adjustments as needed for blood pressure control Acid reflux: Protonix 40 mg daily STOP Prilosec Please follow-up with your PCP. If symptoms do not improve, you may need referral to gastroenterology for additional workup Resume all other regular home medications as instructed It is HIGHLY RECOMMENDED that you use your WALKER AT ALL TIMES WITH ACTIVITY to prevent future falls or injuries FOLLOW-UPS: Please follow-up with your PCP within 5-7 days Please follow-up with Oncology, Dr. Willett within 1-2 weeks Please follow-up/keep all of your subspecialty appointments Medication Instructions: Your condition is typically treated with an anticoagulant. Anticoagulants will thin your blood to help prevent new clots. * You should take her medication exactly as directed. * Never skip a dose. * Never take a double dose. If you miss a dose, take it as soon as you remember. Call your Primary Care doctor if you experience any of the following: * Swelling or Pain in your leg * Sudden, continuous pain deep in a muscle * Pain that worsens when you are active or when you stand still for a long time * Chest Pain * Sudden Shortness of Breath * Rapid or pounding heart beat * Fainting * Dizziness * Cough with blood or bloody sputum * Sweating more than normal * Bruises * Heavy or uncontrolled bleeding * Blood in your urine, stool or vomit * Black or tarry stools Caring for Your Self at Home: * Avoid sitting, standing or lying down for long periods without moving your legs and feet * When traveling by car, stop to get out and move around at least once every 3 hours * On long airplane, train or bus rides, get up and move around when possible * If you can't get up, wiggle your toes and tighten your calves to keep your blood moving Follow Up: It is important for you to keep your follow up appointments with your medical provider. Current Hospital Diet Patient's current hospital diet: AHA Diet (Heart Healthy) Discharge Diet Recommended Diet: AHA Diet (Heart Healthy) Pending Studies Studies pending at discharge: no Medical Emergencies . Who to Call and When: Medical Emergencies: If at any time you feel your situation is an emergency, please call 911 immediately. . Non-Emergent Contact Non-Emergency issues call your: Primary Care Provider Call Non-Emergent contact if: you have any medication questions . . "Provider Documentation" section prepared by Krista Bain. . VTE Core Measure Inpt VTE Proph given/why not?: Other Anticoagulation
[2017-04-13 14:35] VITALS: BP 122/71; PULSE 74; TEMP 36.6; O2SAT 97
[2017-04-13] MEDS ORDERED: ENOXAPARIN 60 MG/0.6 ML SYR SQ SCH (21:00)
== END 2017-04-13 15:20 | disposition home health service (06) | DRG 176 ==
LOC: C.EDB 13:53 → C.2E 20:09 → ENRESERV 20:22
PROVIDERS: ADMIT Internal Medicine; ATTEND Family Medicine
DX: I26.99 Other pulmonary embolism without acute cor pulmonale (principal); I82.402 Acute embolism and thrombosis of unspecified deep veins of left lower extremity; C79.31 Secondary malignant neoplasm of brain; I10 Essential (primary) hypertension; G51.0 Bell's palsy; E78.5 Hyperlipidemia, unspecified; C44.222 Squamous cell carcinoma of skin of right ear and external auricular canal; Z79.82 Long term (current) use of aspirin; Z79.899 Other long term (current) drug therapy; Z87.891 Personal history of nicotine dependence

== ENCOUNTER 2017-08-11 14:11 | Inpatient (IN) | payer BC, OTHER ==
[~2017-08-11] VITALS: Ht 162.6 cm; Wt 50.1 kg
[~2017-08-11 14:11] MED LIST changes: +APR25 PO; +ARC5 PO; -ASPCH81X PO; -CRS/10 PO; +DXM/4 PO; +ENOX60IN SQ; -IRON PO; +LXP10 PO; +PANT40TA PO; -VITAMIN D PO; -decadron
[2017-08-11] MEDS ORDERED: CRS/10 PO (14:42)
[2017-08-11] MEDS ORDERED: MECL1TAB40 PO (14:42)
[2017-08-11] MEDS ORDERED: CALC500C70 PO (14:42)
[2017-08-11] MEDS ORDERED: FERR1TAB13 PO (14:42)
--- NOTE | 2017-08-11 14:50 | EMERGENCY ROOM VISIT NOTE ---
History Report prepared by Tierra: Bina Walker Under the Supervision of: Dr. Rosas Gauthier M.D. First contact with patient: 14:19 Chief Complaint: FALL Stated Complaint: FALL/SOB/AMS History of Present Illness The patient is a 87 year old female who presents to the Emergency Room with complaints of a fall occurring shortly prior to arrival. Per nursing staff, the patient has a history of dementia and lives at home with her . Per nursing staff, the patient's put her in a chair, went outside, and when he came back inside, the patient was found on the floor as she fell out of the chair. Her states that the patient did not lose consciousness. Per , the patient was dizzy this morning and slipped earlier this morning, but caught herself. Per , the patient did bump her head this morning when she slipped. Her states that the patient has been confused today and yesterday. 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 Her states that the patient has had surgery on her nose twice. Per , the patient's doctor is Dr. Willett. Per , the patient has been complaining of back pain. The patient denies having headaches, neck pain, and abdominal pain. Limited HPI secondary to dementia. Source of History: spouse/significant other, nursing staff History Limited By: dementia Onset: shortly prior to arrival Position: other (generalized ) Quality: other (fall ) Associated Symptoms: + back pain, + weakness (dizziness, confusion ), No LOC , No headache, No neck pain, No abdominal pain Review of Systems Limited ROS secondary to dementia. Past Medical & Surgical Medical Problems: (1) Dementia (2) DVT (deep venous thrombosis) (3) GERD (gastroesophageal reflux disease) (4) Pulmonary embolism (5) Vertigo Family History Cancer Heart disease Hypertension Social History Smoking Status: Former Smoker Alcohol Use: none Drug Use: none Marital Status: Housing Status: lives with family Occupation Status: retired Current/Historical Medications Scheduled Calcium/Vitamin D (Os-Jaspreet 500 Plus D), 1 TAB PO BID Dexamethasone (Decadron), 4 MG PO BID Donepezil HCl (Donepezil HCl), 5 MG PO HS Enoxaparin (Lovenox), 60 MG SQ QPM Escitalopram Oxalate (Escitalopram Oxalate), 10 MG PO DAILY Ferrous Sulfate (Kp Ferrous Sulfate), 325 MG PO DAILY Lisinopril (Zestril), 5 MG PO QAM Lorazepam (Ativan), 1 MG PO HS Multivitamin (Multivitamin), 1 TAB PO QAM Pantoprazole (Protonix), 40 MG PO QAM Rosuvastatin Calcium (Crestor), 10 MG PO HS Scheduled PRN Meclizine HCl (Meclizine HCl), 12.5-25 MG PO Q6H PRN for Dizziness or Vertigo Allergies Coded Allergies: No Known Allergies (Verified , `, 04/28/17) Physical Exam Vital Signs Date Time Temp Pulse Resp B/P (MAP) Pulse Ox O2 Delivery O2 Flow Rate FiO2 08/11/17 15:25 91 16 174/96 95 Room Air 08/11/17 14:42 99 Oxymask 08/11/17 14:28 99 Oxymask 3.0 08/11/17 14:23 88 08/11/17 14:12 36.7 90 20 190/86 98 Room Air Physical Exam GENERAL: Awake, alert, in mild distress HENT: Normocephalic. Facial trauma noted. Swelling to nose, bleeding present. Cervical collar in place. Contusion to the forehead. Abrasion on the entrance of the left naris. EYES: Normal conjunctiva. Sclera non-icteric. NECK: Supple. No nuchal rigidity. FROM. No masses. RESPIRATORY: Clear to auscultation. No wheezes. No rales. Normal respiratory effort. CARDIAC: Borderline tachycardia. Normal rhythm. No murmurs. No rubs. Extremities warm and well perfused. Pulses equal. No JVD. GI: Soft, non-distended. No tenderness to palpation. No rebound or guarding. No masses. RECTAL: Deferred. MUSCULOSKELETAL: Atraumatic. Chest examination reveals no tenderness. The back is symmetrical on inspection without obvious abnormality. There is no CVA tenderness to palpation. No joint edema. LOWER EXTREMITIES: Calves are equal size bilaterally and non-tender. No edema. No discoloration. NEURO: Normal sensorium. No sensory or motor deficits noted. SKIN: No rash or jaundice noted. Medical Decision & Procedures ER Provider Diagnostic Interpretation: Radiology results as stated below per my review and radiologist interpretation: CHEST ONE VIEW PORTABLE CLINICAL HISTORY: Trauma. Weakness. COMPARISON STUDY: 04/12/2017 FINDINGS: The cardiac and mediastinal contours remain stable. There is a stable 2 cm left lower lung zone pulmonary nodule. No pneumothorax is visualized. There is no acute parenchymal consolidation. There are no pleural effusions. There are postsurgical changes of a lower thoracic vertebroplasty.[ IMPRESSION: Stable 2 cm left lower lung zone pulmonary nodule. No active disease in the chest. Electronically signed by: Miguel Angel Paige M.D. 08/11/2017 3:00 PM Dictated Date/Time: 08/11/2017 2:59 PM THORACIC SPINE WITHOUT CT DOSE: HISTORY: Trauma. Pain. fall TECHNIQUE: Multiaxial CT images of the thoracic spine were performed and reformatted in the sagittal and coronal plane without the use of contrast. A dose lowering technique was utilized adhering to the principles of ALARA. COMPARISON: 08/16/2009. CT chest 02/20/2017 FINDINGS: No fractures. No subluxation. Paraspinal soft tissues are unremarkable. Old compression deformity T12. Prior vertebroplasty at that site. IMPRESSION: Old compression deformity T12. No acute process. Degenerative disc change throughout the entire thoracic region. The above report was generated using voice recognition software. It may contain grammatical, syntax or spelling errors. Electronically signed by: Cory Calvert M.D. 08/11/2017 3:30 PM Dictated Date/Time: 08/11/2017 3:[address] FACIAL BONES-MXILLOFAC WITHOUT CT DOSE: 1391.02 mGy.cm CLINICAL HISTORY: Facial pain status post trauma COMPARISON STUDY: No previous studies for comparison. TECHNIQUE: Helical images were acquired in the transverse plane. The study was reviewed and analyzed on the independent 3-D workstation. A dose lowering technique was utilized adhering to the principles of ALARA. The pterygoid plates appear intact. The zygomatic arches appear intact. There is a metallic foreign body within or abutting the anterior aspect of the right globe. There is a deformity of the right maxilla sinus, likely postsurgical. There is absence of the right lamina papyracea, likely postsurgical. There are postsurgical changes involving the right nasal cavity. There are age-indeterminate nasal bone fractures. There is a defect involving the right medial orbital wall likely postsurgical. The mandibular condyles appear intact. There are bony destructive changes involving the right temporal bone, petrous bone and mastoid consistent with neoplasm. IMPRESSION: 1. Destructive changes involving the right petrous bone, mastoid, and right temporal bone consistent with neoplasm 2. Presumed postsurgical changes involving the right maxillary sinus, and right lamina papyracea. 3. Age-indeterminate nasal bone fractures 4. Metallic foreign body (possibly postsurgical) within or abutting the anterior aspect of the right globe superiorly Electronically signed by: Miguel Angel Paige M.D. 08/11/2017 3:38 PM Dictated Date/Time: 08/11/2017 3:[address] HEAD WITHOUT CONTRAST (CT) CLINICAL HISTORY: Head pain status post trauma COMPARISON STUDY: MRI dated 03/17/2017 TECHNIQUE: Axial CT of the brain is performed from the vertex to the skull base. IV contrast was not administered for this examination. A dose lowering technique was utilized adhering to the principles of ALARA. CT DOSE: FINDINGS: There are areas of vasogenic edema within the right cerebellum and right temporal lobe consistent with metastatic disease. There is no evidence of midline shift. There is no evidence of acute hemorrhage. There are bony destructive changes involving the right temporal bone consistent with neoplasm. There is a bony defect involving the right lamina papyracea. This may be chronic. There is a metallic foreign body within or abutting the right anterior globe There are patchy white matter hypodensities likely on a small vessel basis. There is mild particular prominence secondary to volume loss. Chronic postoperative changes are present within the paranasal sinuses IMPRESSION: 1. No evidence of acute intracranial injury 2. Destructive changes involving the right temporal bone consistent with neoplasm 3. Vasogenic edema within the right temporal lobe and right cerebellum consistent with the patient's known metastatic disease. 4. Metallic foreign body within or abutting the right globe anteriorly Electronically signed by: Miguel Angel Paige M.D. 08/11/2017 3:31 PM Dictated Date/Time: 08/11/2017 3:27 PM CERVICAL SPINE W/O CT DOSE: HISTORY: Trauma. Pain. fall TECHNIQUE: Multiaxial CT images of the cervical spine were performed and reformatted in the sagittal and coronal plane without the use of contrast. A dose lowering technique was utilized adhering to the principles of ALARA. COMPARISON: None. FINDINGS: Degenerative change throughout the entire cervical region. No acute compression deformity. Degenerative changes C1-C2 complex. Destructive soft tissue process of the right mastoid air cells which has been described previously. IMPRESSION: 1. Degenerative change of the cervical spine. No acute posttraumatic abnormality of the cervical region. Destructive lesion of the right mastoid region which has been described previously. The above report was generated using voice recognition software. It may contain grammatical, syntax or spelling errors. Electronically signed by: Cory Calvert M.D. 08/11/2017 3:35 PM Dictated Date/Time: 08/11/2017 3:30 PM Laboratory Results 08/11/17 14:30 Red Blood Count 3.87, Mean Corpuscular Volume 91.2, Mean Corpuscular Hemoglobin 31.0, Mean Corpuscular Hemoglobin Concent 34.0, Mean Platelet Volume 8.7, Neutrophils (%) (Auto) 78.4, Lymphocytes (%) (Auto) 13.6, Monocytes (%) (Auto) 6.3, Eosinophils (%) (Auto) 0.6, Basophils (%) (Auto) 0.2, Neutrophils # (Auto) 8.24, Lymphocytes # (Auto) 1.43, Monocytes # (Auto) 0.66, Eosinophils # (Auto) 0.06, Basophils # (Auto) 0.02 08/11/17 14:30 Test 08/11/17 14:30 08/11/17 14:44 White Blood Count 10.50 K/uL (4.8-10.8) Red Blood Count 3.87 M/uL (4.2-5.4) Hemoglobin 12.0 g/dL (12.0-16.0) Hematocrit 35.3 % (37-47) Mean Corpuscular Volume 91.2 fL (80-100) Mean Corpuscular Hemoglobin 31.0 pg (25-34) Mean Corpuscular Hemoglobin Concent 34.0 g/dl (32-36) Platelet Count 256 K/uL (130-400) Mean Platelet Volume 8.7 fL (7.4-10.4) Neutrophils (%) (Auto) 78.4 % Lymphocytes (%) (Auto) 13.6 % Monocytes (%) (Auto) 6.3 % Eosinophils (%) (Auto) 0.6 % Basophils (%) (Auto) 0.2 % Neutrophils # (Auto) 8.24 K/uL (1.4-6.5) Lymphocytes # (Auto) 1.43 K/uL (1.2-3.4) Monocytes # (Auto) 0.66 K/uL (0.11-0.59) Eosinophils # (Auto) 0.06 K/uL (0-0.5) Basophils # (Auto) 0.02 K/uL (0-0.2) RDW Standard Deviation 45.7 fL (36.4-46.3) RDW Coefficient of Variation 13.8 % (11.5-14.5) Immature Granulocyte % (Auto) 0.9 % Immature Granulocyte # (Auto) 0.09 K/uL (0.00-0.02) Prothrombin Time 9.9 SECONDS (9.0-12.0) Prothromb Time International Ratio 0.9 (0.9-1.1) Activated Partial Thromboplast Time 26.1 SECONDS (21.0-31.0) Partial Thromboplastin Ratio 1.0 Anion Gap 7.0 mmol/L (3-11) Est Creatinine Clear Calc Drug Dose 40.0 ml/min Estimated GFR () 74.0 Estimated GFR (Non- 63.9 BUN/Creatinine Ratio 20.3 (10-20) Calcium Level 9.4 mg/dl (8.5-10.1) Magnesium Level 1.9 mg/dl (1.8-2.4) Total Bilirubin 0.5 mg/dl (0.2-1) Direct Bilirubin < 0.1 mg/dl (0-0.2) Aspartate Amino Transf (AST/SGOT) 23 U/L (15-37) Alanine Aminotransferase (ALT/SGPT) 29 U/L (12-78) Alkaline Phosphatase 77 U/L (45-117) Total Creatine Kinase 113 U/L (26-192) Creatine Kinase MB 2.0 ng/ml (0.5-3.6) Creatine Kinase MB Ratio 1.8 (0-3.0) Troponin I < 0.015 ng/ml (0-0.045) Total Protein 7.4 gm/dl (6.4-8.2) Albumin 3.2 gm/dl (3.4-5.0) Lipase 333 U/L (73-393) Thyroid Stimulating Hormone (TSH) 5.720 uIu/ml (0.300-4.500) Urine Color YELLOW Urine Appearance CLOUDY (CLEAR) Urine pH 7.5 (4.5-7.5) Urine Specific [place] 1.018 (1.000-1.030) Urine Protein NEG (NEG) Urine Glucose (UA) NEG (NEG) Urine Ketones NEG (NEG) Urine Occult Blood NEG (NEG) Urine Nitrite NEG (NEG) Urine Bilirubin NEG (NEG) Urine Urobilinogen NEG (NEG) Urine Leukocyte Esterase NEG (NEG) Urine WBC (Auto) 0 /hpf (0-5) Urine RBC (Auto) 0-4 /hpf (0-4) Urine Hyaline Casts (Auto) 1-5 /lpf (0-5) Urine Epithelial Cells (Auto) 10-20 /lpf (0-5) Urine Bacteria (Auto) 2+ (NEG) Laboratory results reviewed by me ECG Per My Interpretation Indication: weakness Rate (beats per minute): 89 Rhythm: normal sinus Findings: no acute ischemic change, no ectopy, other (poor baseline data ) ED Course 1422: The patient was evaluated in room B9. A complete history and physical exam was performed. 1607: I checked on the patient and updated her and her on her results. 1639: Upon reexamination, the patient was resting. I discussed the test results and treatment plan with the patient and her . [facility] The patient will be evaluated for further management. Medical Decision Prior records/ancillary studies reviewed and summarized above. Nursing notes reviewed and agree them. Additional history obtained from the patient's The patient's history was concerning for altered mental status. Differential diagnosis: Etiologies such as infection, hypoglycemia, electrolyte abnormalities, cardiac sources, intracerebral event, toxicologic, neurologic, as well as others were entertained. Physical examination: As above. No septal hematoma. Small superficial abrasions around the left naris and tip of the nose. Contusions on the forehead. Moderate swelling of the nose noted. No midline cervical tenderness. Cervical collar in place. On logroll the patient does not have any tenderness in her spine. ER treatment provided: IV Lock Normal saline hydration. On reassessment the patient felt better. Diagnostics interpretation by me: ECG: No acute ischemia The labs revealed an unremarkable CBC and chemistry panel. The patient's cardiac markers were negative. Her urinalysis shows few bacteria but no definite signs of UTI. Imaging studies: Chest x-ray and CT scans as above The patient fell. She is has facial contusions and a nasal bone fracture. This was unwitnessed. Given the findings of the metastatic cancer there is always a concern for possible seizure. The patient did bite her tongue. Management in the hospital was felt to be appropriate. Family was in agreement. Consultation: A consultation was placed with the hospitalist. The case was discussed and diagnostics were reviewed. The patient was evaluated in the ER for further treatment. Medication Reconcilliation Current Medication List: was personally reviewed by me Blood Pressure Screening Patient's blood pressure: Elevated blood pressure will be monitored by hospitalist Consults Time Called: 1625 Consulting Physician: [facility] Hospitalist Returned Call: [phone] Discussed the patient's case. The patient will be evaluated for further treatment and disposition. Impression Primary Impression: Altered mental status Additional Impressions: Fall Nasal bone fractures Multiple contusions Multiple abrasions Scribe Attestation The scribe's documentation has been prepared under my direction and personally reviewed by me in its entirety. I confirm that the note above accurately reflects all work, treatment, procedures, and medical decision making performed by me. Departure Information Dispostion Being Evaluated By Hospitalist Referrals Fitz Serra M.D. (PCP) Patient Instructions My [facility] Problem Qualifiers
[2017-08-11 15:02] LABS: BASO % 0.2 %; BASO ABS # 0.02 K/uL (0-0.2); EOS % 0.6 %; EOS ABS # 0.06 K/uL (0-0.5); HEMATOCRIT 35.3 % (37-47); IG# 0.09 K/uL (0.00-0.02); LYMPH % 13.6 %; LYMPH ABS # 1.43 K/uL (1.2-3.4); MEAN CELL VOLUME 91.2 fL (80-100); MEAN PLATELET VOLUME 8.7 fL (7.4-10.4); MONO % 6.3 %; MONO ABS # 0.66 K/uL (0.11-0.59); NEUT % 78.4 %; NEUT ABS # 8.24 K/uL (1.4-6.5); PLATELET COUNT 256 K/uL (130-400); RED CELL DISTRIBUTION WIDTH CV 13.8 % (11.5-14.5); RED CELL DISTRIBUTION WIDTH SD 45.7 fL (36.4-46.3)
--- NOTE | 2017-08-11 15:02 | DIAGNOSTIC IMAGING REPORT ---
CHEST ONE VIEW PORTABLE CLINICAL HISTORY: Trauma. Weakness. COMPARISON STUDY: 04/12/2017 FINDINGS: The cardiac and mediastinal contours remain stable. There is a stable 2 cm left lower lung zone pulmonary nodule. No pneumothorax is visualized. There is no acute parenchymal consolidation. There are no pleural effusions. There are postsurgical changes of a lower thoracic vertebroplasty.[ IMPRESSION: Stable 2 cm left lower lung zone pulmonary nodule. No active disease in the chest. Electronically signed by: Miguel Angel Paige M.D. 08/11/2017 3:00 PM Dictated Date/Time: 08/11/2017 2:59 PM
[2017-08-11 15:19] LABS: INR 0.9 (0.9-1.1); PTT PATIENT 26.1 SECONDS (21.0-31.0)
[2017-08-11 15:21] LABS: ALBUMIN 3.2 gm/dl (3.4-5.0); ALT/SGPT 29 U/L (12-78); AST/SGOT 23 U/L (15-37); BLOOD UREA NITROGEN 17 mg/dl (7-18); CALCIUM 9.4 mg/dl (8.5-10.1); CARBON DIOXIDE 29 mmol/L (21-32); CREATININE 0.83 mg/dl (0.60-1.20); GLUCOSE 90 mg/dl (70-99); LIPASE 333 U/L (73-393); SODIUM 132 mmol/L (136-145)
[2017-08-11 15:29] LABS: ALKALINE PHOSPHATASE 77 U/L (45-117); TOTAL PROTEIN 7.4 gm/dl (6.4-8.2)
--- NOTE | 2017-08-11 15:31 | DIAGNOSTIC IMAGING REPORT ---
THORACIC SPINE WITHOUT CT DOSE: HISTORY: Trauma. Pain. fall TECHNIQUE: Multiaxial CT images of the thoracic spine were performed and reformatted in the sagittal and coronal plane without the use of contrast. A dose lowering technique was utilized adhering to the principles of ALARA. COMPARISON: 08/16/2009. CT chest 02/20/2017 FINDINGS: No fractures. No subluxation. Paraspinal soft tissues are unremarkable. Old compression deformity T12. Prior vertebroplasty at that site. IMPRESSION: Old compression deformity T12. No acute process. Degenerative disc change throughout the entire thoracic region. The above report was generated using voice recognition software. It may contain grammatical, syntax or spelling errors. Electronically signed by: Cory Calvert M.D. 08/11/2017 3:30 PM Dictated Date/Time: 08/11/2017 3:28 PM
--- NOTE | 2017-08-11 15:32 | DIAGNOSTIC IMAGING REPORT ---
CT HEAD WITHOUT CONTRAST (CT) CLINICAL HISTORY: Head pain status post trauma COMPARISON STUDY: MRI dated 03/17/2017 TECHNIQUE: Axial CT of the brain is performed from the vertex to the skull base. IV contrast was not administered for this examination. A dose lowering technique was utilized adhering to the principles of ALARA. CT DOSE: FINDINGS: There are areas of vasogenic edema within the right cerebellum and right temporal lobe consistent with metastatic disease. There is no evidence of midline shift. There is no evidence of acute hemorrhage. There are bony destructive changes involving the right temporal bone consistent with neoplasm. There is a bony defect involving the right lamina papyracea. This may be chronic. There is a metallic foreign body within or abutting the right anterior globe There are patchy white matter hypodensities likely on a small vessel basis. There is mild particular prominence secondary to volume loss. Chronic postoperative changes are present within the paranasal sinuses IMPRESSION: 1. No evidence of acute intracranial injury 2. Destructive changes involving the right temporal bone consistent with neoplasm 3. Vasogenic edema within the right temporal lobe and right cerebellum consistent with the patient's known metastatic disease. 4. Metallic foreign body within or abutting the right globe anteriorly Electronically signed by: Miguel Angel Paige M.D. 08/11/2017 3:31 PM Dictated Date/Time: 08/11/2017 3:27 PM
--- NOTE | 2017-08-11 15:36 | DIAGNOSTIC IMAGING REPORT ---
CERVICAL SPINE W/O CT DOSE: HISTORY: Trauma. Pain. fall TECHNIQUE: Multiaxial CT images of the cervical spine were performed and reformatted in the sagittal and coronal plane without the use of contrast. A dose lowering technique was utilized adhering to the principles of ALARA. COMPARISON: None. FINDINGS: Degenerative change throughout the entire cervical region. No acute compression deformity. Degenerative changes C1-C2 complex. Destructive soft tissue process of the right mastoid air cells which has been described previously. IMPRESSION: 1. Degenerative change of the cervical spine. No acute posttraumatic abnormality of the cervical region. Destructive lesion of the right mastoid region which has been described previously. The above report was generated using voice recognition software. It may contain grammatical, syntax or spelling errors. Electronically signed by: Cory Calvert M.D. 08/11/2017 3:35 PM Dictated Date/Time: 08/11/2017 3:30 PM
--- NOTE | 2017-08-11 15:39 | DIAGNOSTIC IMAGING REPORT ---
CT FACIAL BONES-MXILLOFAC WITHOUT CT DOSE: 1391.02 mGy.cm CLINICAL HISTORY: Facial pain status post trauma COMPARISON STUDY: No previous studies for comparison. TECHNIQUE: Helical images were acquired in the transverse plane. The study was reviewed and analyzed on the independent 3-D workstation. A dose lowering technique was utilized adhering to the principles of ALARA. The pterygoid plates appear intact. The zygomatic arches appear intact. There is a metallic foreign body within or abutting the anterior aspect of the right globe. There is a deformity of the right maxilla sinus, likely postsurgical. There is absence of the right lamina papyracea, likely postsurgical. There are postsurgical changes involving the right nasal cavity. There are age-indeterminate nasal bone fractures. There is a defect involving the right medial orbital wall likely postsurgical. The mandibular condyles appear intact. There are bony destructive changes involving the right temporal bone, petrous bone and mastoid consistent with neoplasm. IMPRESSION: 1. Destructive changes involving the right petrous bone, mastoid, and right temporal bone consistent with neoplasm 2. Presumed postsurgical changes involving the right maxillary sinus, and right lamina papyracea. 3. Age-indeterminate nasal bone fractures 4. Metallic foreign body (possibly postsurgical) within or abutting the anterior aspect of the right globe superiorly Electronically signed by: Miguel Angel Paige M.D. 08/11/2017 3:38 PM Dictated Date/Time: 08/11/2017 3:34 PM
[2017-08-11] MEDS ORDERED: ACETAMINOPHEN 325 MG TAB PO PRN (17:00)
[2017-08-11] MEDS ORDERED: ONDANSETRON INJ 2 MG/ML 2 ML VIAL IV PRN (17:00)
[2017-08-11] MEDS ORDERED: POLYETHYLENE (MIRALAX) 17 GM PACK PO PRN (17:00)
--- NOTE | 2017-08-11 17:03 | History and Physical ---
History & Physical Date & Time of Service: Aug 11, 2017 at 16:56 Chief Complaint: Fall/Sob/Ams Primary Care Physician: Fitz Serra M.D. 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 Her present at bedside. 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 This morning the patient was participating in her normal ADLs, ate breakfast and wash dishes and ambulated to the bedroom with walker as she told her she felt tired. Her got her into bed and went outside to mow the lawn. He reports that she must have fallen after getting up by herself and attempting to use the walker and fell straight onto her face as they have been told she has broken her nose. He estimates that she was down for approximately 10 minutes prior to him realizing this. She denies any loss of consciousness, tripping, or lightheadedness. he patient notes she has been feeling dizzy but that this is been an ongoing issue and takes meclizine for this routinely. She did tell her earlier that she was having some back pain. Here in the ER patient was found to have nasal bone fractures. A CT of the cervical spine and thoracic spine show degenerative changes however no acute findings. Past Medical/Surgical History Medical Problems: (1) Dementia (2) DVT (deep venous thrombosis) (3) GERD (gastroesophageal reflux disease) (4) HTN (hypertension) (5) Pulmonary embolism (6) Vertigo (7) Squamous cell carcinoma R middle ear (8) Syncope and collapse Family History Cancer Heart disease Hypertension Social History Smoking Status: Former Smoker Smokeless Tobacco Use: No Alcohol Use: none Drug Use: none Marital Status: Housing status: lives with family Occupational Status: retired Immunizations History of Influenza Vaccine: N/A History of Tetanus Vaccine?: Yes History of Pneumococcal: Yes History of Hepatitis B Vaccine: No Allergies Coded Allergies: No Known Allergies (Verified , `, 04/28/17) Home Medications Scheduled Calcium/Vitamin D (Os-Jaspreet 500 Plus D), 1 TAB PO BID Dexamethasone (Decadron), 0.5 MG PO DAILY Donepezil HCl (Donepezil HCl), 5 MG PO HS Enoxaparin (Lovenox), 60 MG SQ QPM Escitalopram Oxalate (Escitalopram Oxalate), 10 MG PO DAILY Ferrous Sulfate (Kp Ferrous Sulfate), 325 MG PO DAILY Lisinopril (Zestril), 5 MG PO QAM Lorazepam (Ativan), 1 MG PO HS Meclizine HCl (Meclizine HCl), 12.5 MG PO QAM Multivitamin (Multivitamin), 1 TAB PO QAM Pantoprazole (Protonix), 40 MG PO QAM Rosuvastatin Calcium (Crestor), 10 MG PO HS Review of Systems Normal physical Constitutional: No fever, sweats or chills Eyes: No diplopia, no worsening or blurred vision ENT: Hard of hearing, 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, + epistaxis, no trouble swallowing Respiratory: No cough, sputum, dyspnea at rest or on exertion Cardiovascular: No chest pain, tightness or palpitations Abdomen: No pain, nausea, vomiting, diarrhea or constipation Musculoskeletal: No joint pain, calf pain, swelling, ambulates with use of a walker Neurologic: No weakness, numbness/tingling, + vertigo Psychiatric: hx of anxiety or depression Skin: No rash or itch Physical Exam Vital Signs Date Time Temp Pulse Resp B/P (MAP) Pulse Ox O2 Delivery O2 Flow Rate FiO2 08/11/17 15:25 91 16 174/96 95 Room Air 08/11/17 14:42 99 Oxymask 08/11/17 14:28 99 Oxymask 3.0 08/11/17 14:23 88 08/11/17 14:12 36.7 90 20 190/86 98 Room Air General: awake, alert, no apparent distress Head: Normocephalic, trauma involving the nasal bones, + epistaxis, left periorbital cell edema, + developing ecchymosis around the left orbit ENT: PERRL, EOMI, no pharyngeal exudate, mucous membranes moist, + dark bloody secretions in posterior pharynx Chest: Clear to auscultation, on room air, no adventitious breath sounds Cardiac: Regular rate and rhythm,+ systolic murmur grade III/, no JVD, normal peripheral pulses, good capillary refill Abdominal: NABS x 4 quadrants, soft, nontender to palpation, no rebound, guarding or tenderness, + ecchymosis bilateral lower abdominal quadrants due to Lovenox injections Extremities: Normal inspection, no peripheral edema or erythema, calfs nontender to palpation Psych: Normal mood and affect Neuro: AA oriented to self and place, difficulty recalling events, strength intact bilaterally and related 3/5, no motor deficits, speech is clear, no peripheral sensory deficits Diagnostics Laboratory Results Results Past 24 Hours Test 08/11/17 14:30 08/11/17 14:44 Range/Units White Blood Count 10.50 4.8-10.8 K/uL Red Blood Count 3.87 4.2-5.4 M/uL Hemoglobin 12.0 12.0-16.0 g/dL Hematocrit 35.3 37-47 % Mean Corpuscular Volume 91.2 80-100 fL Mean Corpuscular Hemoglobin 31.0 25-34 pg Mean Corpuscular Hemoglobin Concent 34.0 32-36 g/dl Platelet Count 256 130-400 K/uL Mean Platelet Volume 8.7 7.4-10.4 fL Neutrophils (%) (Auto) 78.4 % Lymphocytes (%) (Auto) 13.6 % Monocytes (%) (Auto) 6.3 % Eosinophils (%) (Auto) 0.6 % Basophils (%) (Auto) 0.2 % Neutrophils # (Auto) 8.24 1.4-6.5 K/uL Lymphocytes # (Auto) 1.43 1.2-3.4 K/uL Monocytes # (Auto) 0.66 0.11-0.59 K/uL Eosinophils # (Auto) 0.06 0-0.5 K/uL Basophils # (Auto) 0.02 0-0.2 K/uL RDW Standard Deviation 45.7 36.4-46.3 fL RDW Coefficient of Variation 13.8 11.5-14.5 % Immature Granulocyte % (Auto) 0.9 % Immature Granulocyte # (Auto) 0.09 0.00-0.02 K/uL Prothrombin Time 9.9 9.0-12.0 SECONDS Prothromb Time International Ratio 0.9 0.9-1.1 Activated Partial Thromboplast Time 26.1 21.0-31.0 SECONDS Partial Thromboplastin Ratio 1.0 Sodium Level 132 136-145 mmol/L Potassium Level 4.0 3.5-5.1 mmol/L Chloride Level 97 98-107 mmol/L Carbon Dioxide Level 29 21-32 mmol/L Anion Gap 7.0 3-11 mmol/L Blood Urea Nitrogen 17 7-18 mg/dl Creatinine 0.83 0.60-1.20 mg/dl Est Creatinine Clear Calc Drug Dose 40.0 ml/min Estimated GFR () 74.0 Estimated GFR (Non- 63.9 BUN/Creatinine Ratio 20.3 10-20 Random Glucose 90 70-99 mg/dl Calcium Level 9.4 8.5-10.1 mg/dl Magnesium Level 1.9 1.8-2.4 mg/dl Total Bilirubin 0.5 0.2-1 mg/dl Direct Bilirubin < 0.1 0-0.2 mg/dl Aspartate Amino Transf (AST/SGOT) 23 15-37 U/L Alanine Aminotransferase (ALT/SGPT) 29 12-78 U/L Alkaline Phosphatase 77 45-117 U/L Total Creatine Kinase 113 26-192 U/L Creatine Kinase MB 2.0 0.5-3.6 ng/ml Creatine Kinase MB Ratio 1.8 0-3.0 Troponin I < 0.015 0-0.045 ng/ml Total Protein 7.4 6.4-8.2 gm/dl Albumin 3.2 3.4-5.0 gm/dl Lipase 333 73-393 U/L Thyroid Stimulating Hormone (TSH) 5.720 0.300-4.500 uIu/ml Urine Color YELLOW Urine Appearance CLOUDY CLEAR Urine pH 7.5 4.5-7.5 Urine Specific Tracy 1.018 1.000-1.030 Urine Protein NEG NEG Urine Glucose (UA) NEG NEG Urine Ketones NEG NEG Urine Occult Blood NEG NEG Urine Nitrite NEG NEG Urine Bilirubin NEG NEG Urine Urobilinogen NEG NEG Urine Leukocyte Esterase NEG NEG Urine WBC (Auto) 0 0-5 /hpf Urine RBC (Auto) 0-4 0-4 /hpf Urine Hyaline Casts (Auto) 1-5 0-5 /lpf Urine Epithelial Cells (Auto) 10-20 0-5 /lpf Urine Bacteria (Auto) 2+ NEG Microbiology Results 08/11/17 Urine Culture, Received Pending Impression Assessment and Plan Syncope vs Seizure disorder Hx of SCC of the R middle ear with metastasis to the brain - s/p chemo and radiation 2006 - Admit to tele - MRI of the brain last done in Mar 2017 showing slight progression of metastasis and increased size of the tumor. - CT maxillofacial reviewed - Discussed case with Dr. 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 Pt appears to be breathing well through the nose at this time despite epistasix. Can consider outpatient referral to ENT after swelling decreases in 2-3 days if preferred by the pt/ family. Appears pt was initially diagnosed by [place] [facility] [place] however this provider is retired. - Rad/onc: followed by Dr. Willett with rad/onc who last saw her and determined no further tx options- She has been weaning off dexamethasone as well which could likely contribute to her increased sx of dizziness secondary to swelling. Current dexamethasone dose in 0.5 mg daily, and was scheduled to finish this Friday. - Will check echo to r/o other causes of syncope - Consult neurology, will ask them to order EEG if they deem appropriate. Pt has no hx of seizure activity but is possible with progression of carcinoma with brain mets. - Follow orthostatics - [place] with tylenol, ice for edema, morphine IV 2 mg prn for breakthrough pain - Cont meclizine 12.5 mg Qam and Q6H prn dizziness Hyponatremia - mild, Na = 132 - NSS at 80 mL/hr x 10 hrs, follow am prp, possibly contributing to weakness - check urine osm HTN - stable, continue home lisinopril 5 mg daily Pulmonary nodule - 1.9 cm lobular nodule within the lingula on chest CTA MAGGIE Depression - Continue lexapro Insomnia - Continue donezepril 5 mg HS and ativan 1 mg HS for sleep. Dementia - Mild to moderate per the family - pt will require reorientation and frequently will attempt to get up out of bed which makes her high risk for fall - PT/OT consulted - 1:1 sitter at bedside Elevated TSH = 5.7 - noted, follow as an outpatient for now DVT ppx: lovenox 60 mg subq QAM CODE STATUS: DNR Disposition: From home, lives with , PT/OT to eval I personally interviewed and examined the patient. I agree with history of present illness and physical exam mentioned above, I also performed my own history taking and examination. Past medical history and review of system has been obtained by myself I reviewed all pertinent labs and studies Reviewed current medications I discussed and formulated of the assessment and plan mentioned above. Please refer to the Summary mentioned below. 87 years old female with right ear squamous cell carcinoma with brain metastasis , radiation therapy was discontinued due to terminal condition. She was in her regular state of health at home when her left her for a short period of time. When he came back he found her on the floor on her face. She was brought to the ED for further evaluation. Patient does not recall the details. Suspecting questionable seizure versus syncope. Imaging showed nasal fracture. Patient will be admitted to telemetry, neurology will be consulted. Pain management. ENT was contacted but due to multiple previous surgeries in her head and neck secondary to her squamous cell carcinoma any surgical intervention on her nasal fracture was deferred. She was also found to have mild hyponatremia, started on normal saline hydration. Urine and plasma osmolality was ordered. Labs for tomorrow morning were ordered Physical therapy/Occupational Therapy and neurology consult were ordered General Appearance: not in acute distress Eyes: normal Sclerae, extraocular muscle intact, large bruise on her left side of the face ENT: hearing is impaired, hears only from the left ear, nose appear to be deformed Neck: supple Respiratory/Chest: normal air entry bilateral ,no respiratory distress, no accessory muscle use Cardiovascular: regular rate, rhythm, no murmur Abdomen: non tender, soft, no masses Extremities: no edema musculoskeletal: no significant swelling or inflammation in any joint Neurologic/Psychiatric: Awake alert , slightly confused moves all extremities sensation intact cranial nerves II-12 appear to be intact Skin: normal color, warm/dry, no rash Briseyda Mireles MD, [facility] Resuscitation Status VTE Prophylaxis Will order VTE Prophylaxis: Yes
[2017-08-11] MEDS ORDERED: MECLIZINE HCL 12.5 MG TAB PO PRN (17:45)
[2017-08-11 18:28] VITALS: BP 177/81; PULSE 90; TEMP 36.7; O2SAT 96; Ht 162.6 cm; Wt 50.1 kg
[2017-08-11] MEDS ORDERED: MoRPHine SULFATE 2 MG/ML CARP IV PRN (18:30)
[2017-08-11 20:00] VITALS: O2SAT 96
[2017-08-11] MEDS: LORAZEPAM 1 MG TAB PO SCH (20:22)
[2017-08-11] MEDS: CALCIUM 600MG + VIT D 400 IU TAB PO SCH (20:22)
[2017-08-11] MEDS: DONEPEZIL HCL 5 MG TAB PO SCH (20:23)
[2017-08-11] MEDS: ROSUVASTATIN CALCIUM 10 MG TAB PO SCH (20:23)
[2017-08-11] MEDS: SODIUM CHLORIDE 0.9% 1000ML 1,000 ML IV SCH (20:24)
[2017-08-11 20:51] VITALS: BP 158/76; PULSE 82; TEMP 36.7; O2SAT 95
[2017-08-11] MEDS ORDERED: ENOXAPARIN 60 MG/0.6 ML SYR SQ SCH (21:00)
[2017-08-11 23:59] VITALS: BP 135/65; PULSE 80; TEMP 37.2; O2SAT 95
[2017-08-12] VITALS (8 sets, daily range): BP systolic 134–198; BP diastolic 49–83; PULSE 75–84; TEMP 36.3–36.6; O2SAT 95–96
[2017-08-12] MEDS: SODIUM CHLORIDE 0.9% 1000ML 1,000 ML IV SCH (07:55)
[2017-08-12] MEDS: DEXAMETHASONE 1 MG TAB PO SCH (07:55)
[2017-08-12] MEDS: PANTOprazole SOD 40 MG TAB PO SCH (07:56)
[2017-08-12] MEDS: MULTIVITAMIN TAB PO SCH (07:56)
[2017-08-12] MEDS: ENOXAPARIN 60 MG/0.6 ML SYR SQ SCH (07:56)
[2017-08-12] MEDS: FERROUS SULFATE 325 MG TAB PO SCH (07:56)
[2017-08-12] MEDS: ESCITALOPRAM OXALATE 10 MG TAB PO SCH (07:56)
[2017-08-12] MEDS: MECLIZINE HCL 12.5 MG TAB PO SCH (07:56)
[2017-08-12] MEDS: CALCIUM 600MG + VIT D 400 IU TAB PO SCH ×2 (07:57→21:57)
[2017-08-12] MEDS: LISINOPRIL 5 MG TAB PO SCH (07:57)
[2017-08-12 08:20] LABS: BASO % 0.2 %; BASO ABS # 0.01 K/uL (0-0.2); EOS % 0.9 %; EOS ABS # 0.06 K/uL (0-0.5); HEMATOCRIT 29.9 % (37-47); IG# 0.04 K/uL (0.00-0.02); LYMPH % 13.7 %; LYMPH ABS # 0.87 K/uL (1.2-3.4); MEAN CORPUSCULAR HEMOGLOBIN 29.8 pg (25-34); MEAN CORPUSCULAR HGB CONC 33.4 g/dl (32-36); MEAN PLATELET VOLUME 8.3 fL (7.4-10.4); MONO ABS # 0.38 K/uL (0.11-0.59); NEUT % 78.6 %; NEUT ABS # 4.99 K/uL (1.4-6.5); PLATELET COUNT 208 K/uL (130-400); RED CELL DISTRIBUTION WIDTH CV 13.6 % (11.5-14.5); RED CELL DISTRIBUTION WIDTH SD 44.6 fL (36.4-46.3); WHITE BLOOD COUNT 6.35 K/uL (4.8-10.8)
--- NOTE | 2017-08-12 08:46 | ECHOCARDIOGRAM REPORT ---
*NOTICE TO RECEIVING REPUBLICAN AGENCY This information is strictly Confidential and protected under [place] law. [place] law prohibits you from making any further disclosure of this information unless further disclosure is expressly permitted by the written consent of the person to whom it pertains or is authorized by law. A general authorization for the release of medical or other information is not sufficient for this purpose. Hospital accepts no responsibility if the information is made available to any other person, INCLUDING THE PATIENT. Interpretation Summary * Name: ЕКАТЕРИНА HALL Study Date: 08/12/2017 07:02 AM BP: 134/49 mmHg * Patient Location: C.2T\S\S241\S\1 HR: 75 * : 1930 (M/d/yyyy) Gender: Female Height: 64 in * Age: 87 yrs Ethnicity: CA Weight: 114 lb * Ordering Physician: Hollie Moreno * Referring Physician: Self, Referred * Performed By: Jill Warren RUST * * Reason For Study: SYNCOPE * BSA: 1.5 m2 * -- Conclusions -- * There is borderline concentric left ventricular hypertrophy. * Left ventricular systolic function is normal. * Grade I diastolic dysfunction, (abnormal relaxation pattern). * Moderate valvular aortic stenosis. * Right ventricular systolic pressure is normal. Procedure Details * A complete two-dimensional transthoracic echocardiogram was performed (2D, M-mode, Doppler and color flow Doppler). * The study was technically difficult. * There were technical limitations due to patient'sinability to cooperate Left Ventricle * The left ventricle is normal in size. * There is borderline concentric left ventricular hypertrophy. * The basal septum is thickened and angulated consistent with sigmoid septum. * Left ventricular systolic function is normal. * Ejection Fraction = 60-65%. * Grade I diastolic dysfunction, (abnormal relaxation pattern). * The left ventricular wall motion is normal. Right Ventricle * The right ventricle is normal in size and function. Atria * The left atrial size is normal. * Right atrial size is normal. Mitral Valve * The mitral valve is grossly normal. * Significant mitral regurgitation is absent. Tricuspid Valve * The tricuspid valve is not well visualized, but is grossly normal. * There is trace tricuspid regurgitation. * Right ventricular systolic pressure is normal. Aortic Valve * Moderate valvular aortic stenosis. * Trace aortic regurgitation. Pulmonic Valve * The pulmonic valve is not well visualized. Pericardium/Pleural * There is no pericardial effusion. MMode 2D Measurements and Calculations IVSd 1.1 cm IVSs 1.4 cm LVIDd 3.4 cm LVIDs 2.6 cm LVPWd 1.2 cm LVPWs 1.2 cm IVS/LVPW 0.94 FS 24.1 % EDV(Teich) 47.6 ml ESV(Teich) 24.2 ml EF(Teich) 49.0 % EDV(cubed) 39.4 ml ESV(cubed) 17.3 ml EF(cubed) 56.2 % % IVS thick 24.6 % % LVPW thick 5.6 % LV mass(C)d 119.9 grams LV mass(C)dI 77.9 grams/m\S\2 LV mass(C)s 102.8 grams LV mass(C)sI 66.8 grams/m\S\2 SV(Teich) 23.3 ml SI(Teich) 15.1 ml/m\S\2 SV(cubed) 22.2 ml SI(cubed) 14.4 ml/m\S\2 LVOT diam 1.9 cm LVOT area 2.9 cm\S\2 LVAd ap4 26.6 cm\S\2 LVLd ap4 8.1 cm EDV(MOD-sp4) 73.1 ml EDV(sp4-el) 73.9 ml LVAs ap4 17.6 cm\S\2 LVLs ap4 6.9 cm ESV(MOD-sp4) 36.6 ml ESV(sp4-el) 38.2 ml EF(MOD-sp4) 49.9 % EF(sp4-el) 48.4 % LVAd ap2 26.6 cm\S\2 LVLd ap2 8.1 cm EDV(MOD-sp2) 69.8 ml EDV(sp2-el) 74.2 ml LVAs ap2 18.5 cm\S\2 LVLs ap2 7.6 cm ESV(MOD-sp2) 35.9 ml ESV(sp2-el) 38.5 ml EF(MOD-sp2) 48.6 % EF(sp2-el) 48.1 % LVLd %diff -0.20 % EDV(MOD-bp) 71.4 ml LVLs %diff 9.2 % ESV(MOD-bp) 37.1 ml EF(MOD-bp) 48.1 % SV(MOD-sp4) 36.5 ml SI(MOD-sp4) 23.7 ml/m\S\2 SV(MOD-sp2) 33.9 ml SI(MOD-sp2) 22.0 ml/m\S\2 SV(MOD-bp) 34.3 ml SI(MOD-bp) 22.3 ml/m\S\2 SV(sp4-el) 35.8 ml SI(sp4-el) 23.2 ml/m\S\2 SV(sp2-el) 35.7 ml SI(sp2-el) 23.2 ml/m\S\2 Doppler Measurements and Calculations MV E max pedrito 83.6 cm/sec MV A max pedrito 115.4 cm/sec MV E/A 0.72 MV P1/2t max pedrito 102.7 cm/sec MV P1/2t 89.0 msec MVA(P1/2t) 2.5 cm\S\2 MV dec slope 337.8 cm/sec\S\2 MV dec time 0.47 sec Ao V2 max 321.3 cm/sec Ao max PG 41.3 mmHg Ao max PG (full) 32.6 mmHg Ao V2 mean 218.6 cm/sec Ao mean PG 21.7 mmHg Ao mean PG (full) 16.3 mmHg Ao V2 VTI 72.9 cm SHERLY(I,A) 1.2 cm\S\2 SHERLY(I,D) 1.2 cm\S\2 SHERLY(V,A) 1.3 cm\S\2 SHERLY(V,D) 1.3 cm\S\2 LV V1 max PG 8.7 mmHg LV V1 mean PG 5.4 mmHg LV V1 max 147.8 cm/sec LV V1 mean 111.4 cm/sec LV V1 VTI 31.0 cm SV(LVOT) 88.8 ml SI(LVOT) 57.6 ml/m\S\2 PA V2 max 117.3 cm/sec PA max PG 5.5 mmHg TR max pedrito 245.2 cm/sec
[2017-08-12 08:54] LABS: ALBUMIN 2.3 gm/dl (3.4-5.0); CALCIUM 8.3 mg/dl (8.5-10.1); CREATININE 0.59 mg/dl (0.60-1.20); POTASSIUM 3.8 mmol/L (3.5-5.1); TOTAL PROTEIN 5.8 gm/dl (6.4-8.2)
--- NOTE | 2017-08-12 09:55 | Neurology Consultation ---
Neurology Consultation Date of Consultation: Aug 12, 2017. Attending Physician: Briseyda Escobar MD Primary Care Physician: Fitz Serra M.D. Reason for Consultation: Consultation for new onset seizure History of Present Illness Source: patient, clinic records, hospital records This is a 87-year-old female who presents after an unwitnessed fall history is severely limited due to severe hearing loss. Patient has a difficult time saying why she fell but denies any loss of consciousness. According to admitting notes, the reported that the fall was unwitnessed. Upon reviewing outpatient notes including primary care and oncology notes, it has been noted that the patient has a history of forgetfulness, disequilibrium, dizziness, and falls. Patient denies any history of seizure and there is no mention of previous history of seizures in the chart. There was no witnessed seizure activity with this episode. 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 CT of the head report and images were reviewed by myself. Noted mild vasogenic edema in the right temporal lobe and right cerebellum. There appears to be a metallic foreign body abutting the right orbital globe. Labs notable for increased TSH of 5.7. Blood pressure also noted to be elevated this admission. 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 Reportedly walks with the assistance of a walker but is otherwise mostly independent with her activities of daily living Smoking Status: Never smoker Smokeless Tobacco Use: No Alcohol Use: none Drug Use: none Marital Status: Housing Status: lives with family Occupation Status: retired Allergies Coded Allergies: No Known Allergies (Verified , `, 04/28/17) Current Inpatient Medications Current Inpatient Medications Medications (Trade) Dose Ordered Sig/Zuly Route Start Time Stop Time Status Last Admin Dose Admin Acetaminophen (Tylenol Tab) 650 mg Q4H PRN PO 08/11/17 17:00 09/10/17 16:59 08/11/17 20:22 650 MG Ondansetron HCl (Zofran Inj) 4 mg Q6H PRN IV 08/11/17 17:00 09/10/17 16:59 Polyethylene (Miralax Powder Packet) 17 gm DAILY PRN PO 08/11/17 17:00 09/10/17 16:59 Calcium/Vitamin D (Caltrate Plus Tab) 1 tab BID PO 08/11/17 21:00 09/10/17 20:59 08/12/17 07:57 1 TAB Dexamethasone (Decadron Tab) 0.5 mg DAILY PO 08/12/17 09:00 09/11/17 08:59 08/12/17 07:55 0.5 MG Donepezil HCl (Aricept Tab) 5 mg HS PO 08/11/17 21:00 09/10/17 20:59 08/11/17 20:23 5 MG Escitalopram Oxalate (Lexapro Tab) 10 mg DAILY PO 08/12/17 09:00 09/11/17 08:59 08/12/17 07:56 10 MG Lisinopril (Zestril Tab) 5 mg QAM PO 08/12/17 09:00 09/11/17 08:59 08/12/17 07:57 5 MG Lorazepam (Ativan Tab) 1 mg HS PO 08/11/17 21:00 09/10/17 20:59 08/11/17 20:22 1 MG Multivitamins (Multivitamin Tab) 1 tab QAM PO 08/12/17 09:00 09/11/17 08:59 08/12/17 07:56 1 TAB Pantoprazole Sodium (Protonix Tab) 40 mg QAM PO 08/12/17 09:00 09/11/17 08:59 08/12/17 07:56 40 MG Rosuvastatin Calcium (Crestor Tab) 10 mg HS PO 08/11/17 21:00 09/10/17 20:59 08/11/17 20:23 10 MG Ferrous Sulfate (Feosol Tab) 325 mg QAM PO 08/12/17 09:00 09/11/17 08:59 08/12/17 07:56 325 MG Meclizine HCl (Antivert Tab) 12.5 mg QAM PO 08/12/17 09:00 09/11/17 08:59 08/12/17 07:56 12.5 MG Meclizine HCl (Antivert Tab) 12.5 mg Q6HWA PRN PO 08/11/17 17:45 09/10/17 17:44 Enoxaparin Sodium (Lovenox Inj) 60 mg QAM SQ 08/12/17 09:00 09/10/17 20:59 08/12/17 07:56 60 MG Morphine Sulfate (MoRPHine SULFATE INJ) 2 mg Q4H PRN IV 08/11/17 18:30 08/25/17 18:29 Sodium Chloride 1,000 ml @ 80 mls/hr [id number] IV 08/11/17 19:30 08/12/17 19:29 08/12/17 07:55 80 MLS/HR Review of Systems Complete review of systems was difficult to obtain due to severe hearing loss, but otherwise appeared to be negative except for the above-noted in HPI Physical Exam Vital Signs (Past 24 Hrs): Date Time Temp Pulse Resp B/P (MAP) Pulse Ox O2 Delivery O2 Flow Rate FiO2 08/12/17 09:32 147/77 (100) 08/12/17 08:34 36.3 84 18 198/81 (120) 96 Room Air 08/12/17 04:00 95 Room Air 08/12/17 04:00 36.4 75 20 134/49 (77) 95 Room Air 08/11/17 23:59 37.2 80 20 135/65 (88) 95 Room Air 08/11/17 23:59 95 Room Air 08/11/17 20:51 36.7 82 20 158/76 (103) 95 Room Air 08/11/17 20:00 96 Room Air 08/11/17 18:28 36.7 90 16 177/81 96 Room Air 08/11/17 17:06 90 16 124/74 95 Room Air 08/11/17 17:05 88 08/11/17 15:25 91 16 174/96 95 Room Air 08/11/17 14:42 99 Oxymask 08/11/17 14:28 99 Oxymask 3.0 08/11/17 14:23 88 08/11/17 14:12 36.7 90 20 190/86 98 Room Air Gen.: Patient is alert and oriented in no acute distress lying in bed HEENT: Normocephalic. Bruising of the nose and face. Heart: Regular rate and rhythm with systolic murmur Extremities: No gross deformities or rashes noted Neurological examination: Mental status: Patient is alert and oriented to person and place. Attention concentration normal for the situation. Difficult to assess remote and recent memory due to severe hearing loss. Speech is fluent without any dysarthria or aphasia noted Cranial nerves: Funduscopic examination was difficult to visualize. Pupils equally round and reactive to light. Extraocular muscles intact without nystagmus. Severe right upper and lower facial weakness noted. Facial sensation intact. Tongue midline. Good palatal elevation. Good shoulder shrug bilaterally. Hearing grossly intact voice. Strength: 5/5 both proximal and distal in all extremities. No arm drift.Tone is normal. Sensation: Grossly intact to light touch in all extremities Deep tendon reflexes: +1 in bilateral biceps and patellar. Coordination: Patient has good finger to nose without dysmetria. Station within the bed is normal. Laboratory Results Past 24 Hours: 08/12/17 07:30 Red Blood Count 3.36, Mean Corpuscular Volume 89.0, Mean Corpuscular Hemoglobin 29.8, Mean Corpuscular Hemoglobin Concent 33.4, Mean Platelet Volume 8.3, Neutrophils (%) (Auto) 78.6, Lymphocytes (%) (Auto) 13.7, Monocytes (%) (Auto) 6.0, Eosinophils (%) (Auto) 0.9, Basophils (%) (Auto) 0.2, Neutrophils # (Auto) 4.99, Lymphocytes # (Auto) 0.87, Monocytes # (Auto) 0.38, Eosinophils # (Auto) 0.06, Basophils # (Auto) 0.01 08/12/17 07:30 Test 08/11/17 14:30 08/11/17 14:44 08/11/17 20:50 08/12/17 07:30 Prothrombin Time 9.9 SECONDS (9.0-12.0) Prothromb Time International Ratio 0.9 (0.9-1.1) Activated Partial Thromboplast Time 26.1 SECONDS (21.0-31.0) Partial Thromboplastin Ratio 1.0 Direct Bilirubin < 0.1 mg/dl (0-0.2) Total Creatine Kinase 113 U/L (26-192) Creatine Kinase MB 2.0 ng/ml (0.5-3.6) Creatine Kinase MB Ratio 1.8 (0-3.0) Troponin I < 0.015 ng/ml (0-0.045) Lipase 333 U/L (73-393) Thyroid Stimulating Hormone (TSH) 5.720 uIu/ml (0.300-4.500) Urine Color YELLOW Urine Appearance CLOUDY (CLEAR) Urine pH 7.5 (4.5-7.5) Urine Specific [place] 1.018 (1.000-1.030) Urine Protein NEG (NEG) Urine Glucose (UA) NEG (NEG) Urine Ketones NEG (NEG) Urine Occult Blood NEG (NEG) Urine Nitrite NEG (NEG) Urine Bilirubin NEG (NEG) Urine Urobilinogen NEG (NEG) Urine Leukocyte Esterase NEG (NEG) Urine WBC (Auto) 0 /hpf (0-5) Urine RBC (Auto) 0-4 /hpf (0-4) Urine Hyaline Casts (Auto) 1-5 /lpf (0-5) Urine Epithelial Cells (Auto) 10-20 /lpf (0-5) Urine Bacteria (Auto) 2+ (NEG) Urine Random Sodium 125 mEq/L White Blood Count 6.35 K/uL (4.8-10.8) Red Blood Count 3.36 M/uL (4.2-5.4) Hemoglobin 10.0 g/dL (12.0-16.0) Hematocrit 29.9 % (37-47) Mean Corpuscular Volume 89.0 fL (80-100) Mean Corpuscular Hemoglobin 29.8 pg (25-34) Mean Corpuscular Hemoglobin Concent 33.4 g/dl (32-36) Platelet Count 208 K/uL (130-400) Mean Platelet Volume 8.3 fL (7.4-10.4) Neutrophils (%) (Auto) 78.6 % Lymphocytes (%) (Auto) 13.7 % Monocytes (%) (Auto) 6.0 % Eosinophils (%) (Auto) 0.9 % Basophils (%) (Auto) 0.2 % Neutrophils # (Auto) 4.99 K/uL (1.4-6.5) Lymphocytes # (Auto) 0.87 K/uL (1.2-3.4) Monocytes # (Auto) 0.38 K/uL (0.11-0.59) Eosinophils # (Auto) 0.06 K/uL (0-0.5) Basophils # (Auto) 0.01 K/uL (0-0.2) RDW Standard Deviation 44.6 fL (36.4-46.3) RDW Coefficient of Variation 13.6 % (11.5-14.5) Immature Granulocyte % (Auto) 0.6 % Immature Granulocyte # (Auto) 0.04 K/uL (0.00-0.02) Anion Gap 5.0 mmol/L (3-11) Est Creatinine Clear Calc Drug Dose 54.1 ml/min Estimated GFR () 96.2 Estimated GFR (Non- 83.0 BUN/Creatinine Ratio 17.3 (10-20) Calcium Level 8.3 mg/dl (8.5-10.1) Magnesium Level 1.7 mg/dl (1.8-2.4) Total Bilirubin 0.6 mg/dl (0.2-1) Aspartate Amino Transf (AST/SGOT) 18 U/L (15-37) Alanine Aminotransferase (ALT/SGPT) 21 U/L (12-78) Alkaline Phosphatase 60 U/L (45-117) Total Protein 5.8 gm/dl (6.4-8.2) Albumin 2.3 gm/dl (3.4-5.0) Globulin 3.5 gm/dl (2.5-4.0) Albumin/Globulin Ratio 0.7 (0.9-2) Imaging As noted above in HPI. Impression This is an 87-year-old female who presents with an unwitnessed fall. There was no seizure-like activity witnessed. Patient denies loss of consciousness. Patient certainly does have reasons for ambulatory dysfunction and dizziness with her brain metastasis and vasogenic edema which includes the right cerebellum which likely contributes to falls. Plan It is not unreasonable to check an EEG in the setting of brain metastasis with vasogenic edema to make sure that there is no signs of epileptiform discharges. I have ordered an EEG but I do not think the patient needs to stay in the hospital just for an EEG, and could reasonably be done as an outpatient if desired . I am assuming the patient is unable to get an MRI of the brain due to metallic object in the right orbital globe. Recommend holding on steroid taper until seen or followed up by oncology for further instructions. Patient's TSH and blood pressure was noted to be elevated on admission. This can be addressed by primary team. Physical therapy for ambulatory dysfunction and recurrent falls. If there is any questions or concerns, feel free to call/page me.
--- NOTE | 2017-08-12 11:04 | EEG Procedure Note ---
EEG Procedure Note Date of Service Aug 12, 2017. Start / End Times Start Time: 10:14 AM End Time: 10:34 AM Referring Physician Fidelia Murray History This is 87-year-old female with an unwitnessed fall and concern for possible syncope versus seizure. Significant history of brain metastasis with vasogenic edema in the right temporal and right cerebellum. EEG for further evaluation of possible seizure etiology for fall. Home Medication List Scheduled Calcium/Vitamin D (Os-Jaspreet 500 Plus D), 1 TAB PO BID Dexamethasone (Decadron), 0.5 MG PO DAILY Donepezil HCl (Donepezil HCl), 5 MG PO HS Enoxaparin (Lovenox), 60 MG SQ QPM Escitalopram Oxalate (Escitalopram Oxalate), 10 MG PO DAILY Ferrous Sulfate (Kp Ferrous Sulfate), 325 MG PO DAILY Lisinopril (Zestril), 5 MG PO QAM Lorazepam (Ativan), 1 MG PO HS Meclizine HCl (Meclizine HCl), 12.5 MG PO QAM Multivitamin (Multivitamin), 1 TAB PO QAM Pantoprazole (Protonix), 40 MG PO QAM Rosuvastatin Calcium (Crestor), 10 MG PO HS Inpatient Medication List Current Inpatient Medications Medications (Trade) Dose Ordered Sig/Zuly Route Start Time Stop Time Status Last Admin Dose Admin Acetaminophen (Tylenol Tab) 650 mg Q4H PRN PO 08/11/17 17:00 09/10/17 16:59 08/11/17 20:22 650 MG Ondansetron HCl (Zofran Inj) 4 mg Q6H PRN IV 08/11/17 17:00 09/10/17 16:59 Polyethylene (Miralax Powder Packet) 17 gm DAILY PRN PO 08/11/17 17:00 09/10/17 16:59 Calcium/Vitamin D (Caltrate Plus Tab) 1 tab BID PO 08/11/17 21:00 09/10/17 20:59 08/12/17 07:57 1 TAB Dexamethasone (Decadron Tab) 0.5 mg DAILY PO 08/12/17 09:00 09/11/17 08:59 08/12/17 07:55 0.5 MG Donepezil HCl (Aricept Tab) 5 mg HS PO 08/11/17 21:00 09/10/17 20:59 08/11/17 20:23 5 MG Escitalopram Oxalate (Lexapro Tab) 10 mg DAILY PO 08/12/17 09:00 09/11/17 08:59 08/12/17 07:56 10 MG Lisinopril (Zestril Tab) 5 mg QAM PO 08/12/17 09:00 09/11/17 08:59 08/12/17 07:57 5 MG Lorazepam (Ativan Tab) 1 mg HS PO 08/11/17 21:00 09/10/17 20:59 08/11/17 20:22 1 MG Multivitamins (Multivitamin Tab) 1 tab QAM PO 08/12/17 09:00 09/11/17 08:59 08/12/17 07:56 1 TAB Pantoprazole Sodium (Protonix Tab) 40 mg QAM PO 08/12/17 09:00 09/11/17 08:59 08/12/17 07:56 40 MG Rosuvastatin Calcium (Crestor Tab) 10 mg HS PO 08/11/17 21:00 09/10/17 20:59 08/11/17 20:23 10 MG Ferrous Sulfate (Feosol Tab) 325 mg QAM PO 08/12/17 09:00 09/11/17 08:59 08/12/17 07:56 325 MG Meclizine HCl (Antivert Tab) 12.5 mg QAM PO 08/12/17 09:00 09/11/17 08:59 08/12/17 07:56 12.5 MG Meclizine HCl (Antivert Tab) 12.5 mg Q6HWA PRN PO 08/11/17 17:45 09/10/17 17:44 Enoxaparin Sodium (Lovenox Inj) 60 mg QAM SQ 08/12/17 09:00 09/10/17 20:59 08/12/17 07:56 60 MG Morphine Sulfate (MoRPHine SULFATE INJ) 2 mg Q4H PRN IV 08/11/17 18:30 08/25/17 18:29 Sodium Chloride 1,000 ml @ 80 mls/hr [id number] IV 08/11/17 19:30 08/12/17 19:29 08/12/17 07:55 80 MLS/HR Description This is a 21 electrode EEG with a single channel dedicated to limited EKG. The electrodes were placed in accordance with the International 10-20 system. At the start of this recording the patient was in an awake state. Background was well organized with a mix of alpha and beta frequencies. There was mild continuous slowing over the right hemisphere maximal over the right temporal area. There was a posterior dominant rhythm that was more well formed over the left hemisphere at 11-12 Hz that was reactive to eye opening and closure. Hyperventilation was not done. Photic stimulation at various frequencies did not produce any abnormalities. There was no state changes or sleep transients. Interpretation This is an abnormal routine EEG secondary to continuous mild slowing over the right hemisphere and maximal over the right temporal area. There was no electrographic seizures or epileptiform discharges. Clinical Correlation This EEG indicates a structural or functional cerebral dysfunction over the right hemisphere. This is consistent with the patient's known structural lesions.
--- NOTE | 2017-08-12 18:05 | Medical Consult ---
Consultation Date of Consultation: Aug 12, 2017. Attending Physician: Briseyda Escobar MD Reason for Consultation: Goals of care clarification for brain mets History of Present Illness Mrs. Trujillo is an 87 yo CF known to the consulting Medical Oncology service. She is case of locally advanced right middle ear squamous cell carcinoma diagnosed in 03/2006. She was clinically staged as T4 Nx M0; she had a local extension involving the right temporal bone and adjacent dura mater at the time of the diagnosis. She is S/P chemotherapy with cisplatin/Erbitux and radiation treatment between 03/2006-04/2006 and then approximately one year of single- agent Erbitux which was completed in 07/2007. She has had brain metastasis known since Feb 2017 of the right parietal and right cerebellar areas. She is not a candidate for XRT or systemic treatment. She had been on dexamethasone intermittently since her diagnosis, was on a taper off and was to complete that this week as neurologic symptoms of off balanced feeling were not significantly helped by the dexamethasone. Patient presented to [facility] after she fell yesterday in her home and landed on her face. Her did not witness the fall so we are uncertain of how it occurred, but she did not apparently fall over any objects. She had significant nose bleeding related to fall. She has the known right parietal and right cerebellar mets on CT scan with vasogenic edema. She had an EEG without epileptiform activity. She has no other areas of reported trauma. She denies headache. Her appetite is fair. She has not had cough or dyspnea. Past Medical/Surgical History Medical Problems: (1) Altered mental status Status: Acute (2) Chest pain Status: Acute (3) Fall Status: Acute (4) Malignant neoplasm of ear Status: Acute (5) Multiple abrasions Status: Acute (6) Multiple contusions Status: Acute (7) Nasal bone fractures Status: Acute (8) Pulmonary embolism Status: Acute (9) Right knee pain Status: Acute (10) Synovial cyst of popliteal space [Schultz], right knee Status: Acute Family History Cancer Heart disease Hypertension Social History Smoking Status: Former Smoker Smokeless Tobacco Use: No Alcohol Use: none Drug Use: none Marital Status: Housing Status: lives with family Occupation Status: retired Allergies Coded Allergies: No Known Allergies (Verified , `, 04/28/17) Current Inpatient Medications Current Inpatient Medications Medications (Trade) Dose Ordered Sig/Zuly Route Start Time Stop Time Status Last Admin Dose Admin Acetaminophen (Tylenol Tab) 650 mg Q4H PRN PO 08/11/17 17:00 09/10/17 16:59 08/11/17 20:22 650 MG Ondansetron HCl (Zofran Inj) 4 mg Q6H PRN IV 08/11/17 17:00 09/10/17 16:59 Polyethylene (Miralax Powder Packet) 17 gm DAILY PRN PO 08/11/17 17:00 09/10/17 16:59 Calcium/Vitamin D (Caltrate Plus Tab) 1 tab BID PO 08/11/17 21:00 09/10/17 20:59 08/12/17 07:57 1 TAB Dexamethasone (Decadron Tab) 0.5 mg DAILY PO 08/12/17 09:00 09/11/17 08:59 08/12/17 07:55 0.5 MG Donepezil HCl (Aricept Tab) 5 mg HS PO 08/11/17 21:00 09/10/17 20:59 08/11/17 20:23 5 MG Escitalopram Oxalate (Lexapro Tab) 10 mg DAILY PO 08/12/17 09:00 09/11/17 08:59 08/12/17 07:56 10 MG Lisinopril (Zestril Tab) 5 mg QAM PO 08/12/17 09:00 09/11/17 08:59 08/12/17 07:57 5 MG Lorazepam (Ativan Tab) 1 mg HS PO 08/11/17 21:00 09/10/17 20:59 08/11/17 20:22 1 MG Multivitamins (Multivitamin Tab) 1 tab QAM PO 08/12/17 09:00 09/11/17 08:59 08/12/17 07:56 1 TAB Pantoprazole Sodium (Protonix Tab) 40 mg QAM PO 08/12/17 09:00 09/11/17 08:59 08/12/17 07:56 40 MG Rosuvastatin Calcium (Crestor Tab) 10 mg HS PO 08/11/17 21:00 09/10/17 20:59 08/11/17 20:23 10 MG Ferrous Sulfate (Feosol Tab) 325 mg QAM PO 08/12/17 09:00 09/11/17 08:59 08/12/17 07:56 325 MG Meclizine HCl (Antivert Tab) 12.5 mg QAM PO 08/12/17 09:00 09/11/17 08:59 08/12/17 07:56 12.5 MG Meclizine HCl (Antivert Tab) 12.5 mg Q6HWA PRN PO 08/11/17 17:45 09/10/17 17:44 Enoxaparin Sodium (Lovenox Inj) 60 mg QAM SQ 08/12/17 09:00 09/10/17 20:59 08/12/17 07:56 60 MG Morphine Sulfate (MoRPHine SULFATE INJ) 2 mg Q4H PRN IV 08/11/17 18:30 08/25/17 18:29 Sodium Chloride 1,000 ml @ 80 mls/hr [id number] IV 08/11/17 19:30 08/12/17 19:29 08/12/17 07:55 80 MLS/HR Review of Systems Constitutional: + weakness, No fever ENT: + hearing loss Respiratory: No cough, No shortness of breath Cardiovascular: No edema Abdomen: No pain, No nausea, No constipation Neurologic: + memory loss, + balance problems Integumentary: No rash Physical Exam Date Time Temp Pulse Resp B/P (MAP) Pulse Ox O2 Delivery O2 Flow Rate FiO2 08/12/17 16:05 36.6 82 18 174/83 (113) 96 Room Air 08/12/17 12:00 Room Air 08/12/17 11:42 36.5 76 20 155/77 (103) 96 Room Air 08/12/17 11:19 148/74 (98) 155/73 (100) 08/12/17 09:32 147/77 (100) 08/12/17 08:34 36.3 84 18 198/81 (120) 96 Room Air 08/12/17 08:00 Room Air 08/12/17 04:00 95 Room Air 08/12/17 04:00 36.4 75 20 134/49 (77) 95 Room Air 08/11/17 23:59 37.2 80 20 135/65 (88) 95 Room Air 08/11/17 23:59 95 Room Air 08/11/17 20:51 36.7 82 20 158/76 (103) 95 Room Air 08/11/17 20:00 96 Room Air 08/11/17 18:28 36.7 90 16 177/81 96 Room Air 08/11/17 17:06 90 16 124/74 95 Room Air 08/11/17 17:05 88 General Appearance: no apparent distress ENT: + pertinent finding (severe hearing loss) Respiratory/Chest: lungs clear, no respiratory distress Cardiovascular: regular rate, rhythm Abdomen/GI: normal bowel sounds, non tender, soft Extremities/Musculoskelatal: no pedal edema Neurologic/Psych: alert, + disoriented Laboratory Results Last 24 Hours Test 08/11/17 20:50 08/12/17 07:30 Urine Random Sodium 125 mEq/L White Blood Count 6.35 K/uL Red Blood Count 3.36 M/uL Hemoglobin 10.0 g/dL Hematocrit 29.9 % Mean Corpuscular Volume 89.0 fL Mean Corpuscular Hemoglobin 29.8 pg Mean Corpuscular Hemoglobin Concent 33.4 g/dl Platelet Count 208 K/uL Mean Platelet Volume 8.3 fL Neutrophils (%) (Auto) 78.6 % Lymphocytes (%) (Auto) 13.7 % Monocytes (%) (Auto) 6.0 % Eosinophils (%) (Auto) 0.9 % Basophils (%) (Auto) 0.2 % Neutrophils # (Auto) 4.99 K/uL Lymphocytes # (Auto) 0.87 K/uL Monocytes # (Auto) 0.38 K/uL Eosinophils # (Auto) 0.06 K/uL Basophils # (Auto) 0.01 K/uL RDW Standard Deviation 44.6 fL RDW Coefficient of Variation 13.6 % Immature Granulocyte % (Auto) 0.6 % Immature Granulocyte # (Auto) 0.04 K/uL Sodium Level 132 mmol/L Potassium Level 3.8 mmol/L Chloride Level 99 mmol/L Carbon Dioxide Level 28 mmol/L Anion Gap 5.0 mmol/L Blood Urea Nitrogen 10 mg/dl Creatinine 0.59 mg/dl Est Creatinine Clear Calc Drug Dose 54.1 ml/min Estimated GFR () 96.2 Estimated GFR (Non- 83.0 BUN/Creatinine Ratio 17.3 Random Glucose 81 mg/dl Calcium Level 8.3 mg/dl Magnesium Level 1.7 mg/dl Total Bilirubin 0.6 mg/dl Aspartate Amino Transf (AST/SGOT) 18 U/L Alanine Aminotransferase (ALT/SGPT) 21 U/L Alkaline Phosphatase 60 U/L Total Protein 5.8 gm/dl Albumin 2.3 gm/dl Globulin 3.5 gm/dl Albumin/Globulin Ratio 0.[address]: 1. Destructive changes involving the right petrous bone, mastoid, and right temporal bone consistent with neoplasm 2. Presumed postsurgical changes involving the right maxillary sinus, and right lamina papyracea. 3. Age-indeterminate nasal bone fractures 4. Metallic foreign body (possibly postsurgical) within or abutting the anterior aspect of the right globe superiorly CT head: 1. No evidence of acute intracranial injury 2. Destructive changes involving the right temporal bone consistent with neoplasm 3. Vasogenic edema within the right temporal lobe and right cerebellum consistent with the patient's known metastatic disease. 4. Metallic foreign body within or abutting the right globe anteriorly Assessment & Plan 1. 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 Traumatic fall with facial injury * Patient has not had any aggressive treatment for brain metastases * She has had dexamethasone intermittently since diagnosed in Feb 2017, recently on taper due to lack of improvement of neurologic symptoms in Jun 2017 * In respect to dexamethasone, would recommend to continue for the vasogenic edema and for appetite. * Patient is a palliative care candidate- suggest consult * The patient's had good understanding of the above recommendations Thanks for the consult. Dr. Willett is attending- please see his addendum. I performed history and physical examination of the patient. I have discussed the patient's case, impression and plan with Lakisha North PA-C. Her note reflects my findings and plan. In summary, she has made earlier squamous cell carcinoma with brain mets, unfortunately her disease has further progressed, she is not a candidate for any kind of systemic treatment or radiation treatment to the brain lesions, support received treatment would be appropriate, I spoke with the patient 's daughter was at bedside regarding her oral clinical condition, palliative care consult would be appropriate, home hospice care also would be appropriate. No significant changes noted in her neurological status while she was on Decadron but it has improved her appetite, now recent the imaging study shows brain lesions with vasogenic edema, I would like to continue oral Decadron for brain lesion as well as for the appetite. Decadron 2 mg twice a day would be okay and then we can adjust the dose based on the need.. Dr. Bebo Willett Hem/Onc
[2017-08-12] MEDS: LORAZEPAM 1 MG TAB PO SCH (21:57)
[2017-08-12] MEDS: ROSUVASTATIN CALCIUM 10 MG TAB PO SCH (21:57)
[2017-08-12] MEDS: DONEPEZIL HCL 5 MG TAB PO SCH (21:57)
[2017-08-13 06:09] LABS: BASO % 0.3 %; BASO ABS # 0.02 K/uL (0-0.2); EOS % 1.3 %; EOS ABS # 0.08 K/uL (0-0.5); HEMATOCRIT 31.6 % (37-47); IG# 0.03 K/uL (0.00-0.02); LYMPH % 13.6 %; LYMPH ABS # 0.85 K/uL (1.2-3.4); MEAN CELL VOLUME 89.5 fL (80-100); MEAN CORPUSCULAR HEMOGLOBIN 31.2 pg (25-34); MEAN CORPUSCULAR HGB CONC 34.8 g/dl (32-36); MEAN PLATELET VOLUME 8.3 fL (7.4-10.4); MONO % 8.3 %; MONO ABS # 0.52 K/uL (0.11-0.59); NEUT ABS # 4.76 K/uL (1.4-6.5); PLATELET COUNT 203 K/uL (130-400); RED CELL DISTRIBUTION WIDTH CV 13.6 % (11.5-14.5); RED CELL DISTRIBUTION WIDTH SD 44.5 fL (36.4-46.3); WHITE BLOOD COUNT 6.26 K/uL (4.8-10.8)
[2017-08-13 06:37] LABS: CALCIUM 8.7 mg/dl (8.5-10.1); CREATININE 0.58 mg/dl (0.60-1.20); POTASSIUM 3.7 mmol/L (3.5-5.1)
[2017-08-13 07:18] VITALS: BP 167/82; PULSE 74; TEMP 36.9; O2SAT 97
[2017-08-13] MEDS: CALCIUM 600MG + VIT D 400 IU TAB PO SCH ×2 (07:28→21:03)
[2017-08-13] MEDS: MECLIZINE HCL 12.5 MG TAB PO SCH (07:28)
[2017-08-13] MEDS: LISINOPRIL 5 MG TAB PO SCH (07:28)
[2017-08-13] MEDS: ESCITALOPRAM OXALATE 10 MG TAB PO SCH (07:28)
[2017-08-13] MEDS: DEXAMETHASONE 1 MG TAB PO SCH ×2 (07:28→21:03)
[2017-08-13] MEDS: MULTIVITAMIN TAB PO SCH (07:28)
[2017-08-13] MEDS: PANTOprazole SOD 40 MG TAB PO SCH (07:29)
[2017-08-13] MEDS: FERROUS SULFATE 325 MG TAB PO SCH (07:29)
[2017-08-13] MEDS: ENOXAPARIN 60 MG/0.6 ML SYR SQ SCH (07:29)
[2017-08-13 07:31] VITALS: BP 145/73; PULSE 78; TEMP 36.5; O2SAT 95
--- NOTE | 2017-08-13 08:09 | Progress Note ---
Subjective Date of Service: Aug 12, 2017. Subjective Pt evaluation today including: conversation w/ patient Late input. Patient seen on 08-12-17. Patient reports no new complaints today. Patient reports that she does not recall losing consciousness. Patient is hard of hearing. Family is at bedside. Family is interested in discussing case with Onc and Palliative. 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, + epistaxis, no trouble swallowing Respiratory: No cough, sputum, dyspnea at rest or on exertion Cardiovascular: No chest pain, tightness or palpitations Abdomen: No pain, nausea, vomiting, diarrhea or constipation Musculoskeletal: No joint pain, calf pain, swelling, ambulates with use of a walker Neurologic: No weakness, numbness/tingling, + vertigo Psychiatric: hx of anxiety or depression Skin: No rash or itch Objective Vital Signs Date Time Temp Pulse Resp B/P (MAP) Pulse Ox O2 Delivery O2 Flow Rate FiO2 08/13/17 07:31 36.5 78 18 145/73 (97) 95 Room Air 08/13/17 07:18 36.9 74 20 167/82 (110) 97 Room Air 08/12/17 23:59 Room Air 08/12/17 23:17 36.6 82 20 164/69 (100) 96 Room Air 08/12/17 16:05 36.6 82 18 174/83 (113) 96 Room Air 08/12/17 16:00 96 Room Air 08/12/17 12:00 Room Air 08/12/17 11:42 36.5 76 20 155/77 (103) 96 Room Air 08/12/17 11:19 148/74 (98) 155/73 (100) 08/12/17 09:32 147/77 (100) 08/12/17 08:34 36.3 84 18 198/81 (120) 96 Room Air Physical Exam Comments: General: Patient is awake, alert, no apparent distress Head: Normocephalic, trauma involving the nasal bones, left periorbital cell edema with ecchymosis around the left orbit ENT: PERRL, EOMI, no pharyngeal exudate, mucous membranes moist, + dark bloody secretions in posterior pharynx Chest: Clear to auscultation, on room air, no adventitious breath sounds Cardiac: Regular rate and rhythm,+ systolic murmur grade III/, no JVD, normal peripheral pulses, good capillary refill Abdominal: NABS x 4 quadrants, soft, nontender to palpation, no rebound, guarding or tenderness, + ecchymosis bilateral lower abdominal quadrants due to Lovenox injections Extremities: Normal inspection, no peripheral edema or erythema, calfs nontender to palpation Psych: Normal mood and affect Neuro: AA oriented to self and place, difficulty recalling events, strength intact bilaterally and related 3/5, no motor deficits, speech is clear, no peripheral sensory deficits Laboratory Results Last 24 Hours Test 08/13/17 05:51 White Blood Count 6.26 K/uL Red Blood Count 3.53 M/uL Hemoglobin 11.0 g/dL Hematocrit 31.6 % Mean Corpuscular Volume 89.5 fL Mean Corpuscular Hemoglobin 31.2 pg Mean Corpuscular Hemoglobin Concent 34.8 g/dl Platelet Count 203 K/uL Mean Platelet Volume 8.3 fL Neutrophils (%) (Auto) 76.0 % Lymphocytes (%) (Auto) 13.6 % Monocytes (%) (Auto) 8.3 % Eosinophils (%) (Auto) 1.3 % Basophils (%) (Auto) 0.3 % Neutrophils # (Auto) 4.76 K/uL Lymphocytes # (Auto) 0.85 K/uL Monocytes # (Auto) 0.52 K/uL Eosinophils # (Auto) 0.08 K/uL Basophils # (Auto) 0.02 K/uL RDW Standard Deviation 44.5 fL RDW Coefficient of Variation 13.6 % Immature Granulocyte % (Auto) 0.5 % Immature Granulocyte # (Auto) 0.03 K/uL Sodium Level 136 mmol/L Potassium Level 3.7 mmol/L Chloride Level 104 mmol/L Carbon Dioxide Level 30 mmol/L Anion Gap 2.0 mmol/L Blood Urea Nitrogen 9 mg/dl Creatinine 0.58 mg/dl Est Creatinine Clear Calc Drug Dose 55.1 ml/min Estimated GFR () 96.7 Estimated GFR (Non- 83.5 BUN/Creatinine Ratio 16.4 Random Glucose 87 mg/dl Calcium Level 8.7 mg/dl Assessment and Plan Syncope vs Seizure disorder 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 - MRI of the brain last done in Mar 2017 showing slight progression of metastasis and increased size of the tumor. - CT maxillofacial reviewed - Case was discussed with Dr. Garcia from ENT - pt appears to have sphenoid, ethmoid sinusitis - however due to her extensive surgical procedure hx involving right maxillary sinus, R lamina papyracea, and metallic foreign body ( which is likely metallic mesh) within the anterior aspect of the R globe it is high risk and unlikely that ENT or maxillofacial surgery would want to perform any procedure on the patient considering her terminal illness. Pt appears to be breathing well through the nose at this time despite epistasix. Can consider outpatient referral to ENT after swelling decreases in 2-3 days if preferred by the pt/family. Appears pt was initially diagnosed by ENT in [facility] by Dr. Bellamy however this provider is retired. - Rad/onc: followed by Dr. Willett with rad/onc who last saw her and determined no further tx options- She has been weaning off dexamethasone as well which could likely contribute to her increased sx of dizziness secondary to swelling. Current dexamethasone dose in 0.5 mg daily, and was scheduled to finish this Friday. -Appreciate neuro input. will obtain EEG. Pt has no hx of seizure activity but is possible with progression of carcinoma with brain mets. - Follow orthostatics - [place] with tylenol, ice for edema, morphine IV 2 mg prn for breakthrough pain - Cont meclizine 12.5 mg Qam and Q6H prn dizziness Squamous cell carcinoma of right middle ear Patient appears that she is not responding to treatment. D/W family. Will obtain palliative care consult and hem onc consult. Patient likely will benefit with hospice given her poor prognosis and lack of improvement from her mets. Hyponatremia likely SIADH -will recheck in AM - mild, Na = 132 - NSS at 80 mL/hr x 10 hrs, follow am prp, possibly contributing to weakness - HTN - stable, continue home lisinopril 5 mg daily Pulmonary nodule - 1.9 cm lobular nodule within the lingula on chest CTA MAGGIE Depression - Continue lexapro Insomnia - Continue donezepril 5 mg HS and ativan 1 mg HS for sleep. Dementia - Mild to moderate per the family - pt will require reorientation and frequently will attempt to get up out of bed which makes her high risk for fall - PT/OT consulted - 1:1 sitter at bedside Elevated TSH = 5.7 - noted, follow as an outpatient for now DVT ppx: lovenox 60 mg subq QAM CODE STATUS: DNR Disposition: From home, lives with , PT/OT to [facility] Spent 65 minutes on case of patient due to reviewing outpatient records, discussing case with consultants and family.
--- NOTE | 2017-08-13 11:53 | Palliative Care Consultation ---
Consultation Date of Consultation: Aug 13, 2017. Requesting Physician: Dr. Hernandez Attending Physician: Dr. 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 She has been evaluated by Dr. Willett and has undergone chemo/radiation in 2006 (unsure if with Dr. Willett or not). She additionally has mild dementia. She lives with her and was at home and while her was mowing the lawn, she sustained a fall while she was trying to get up with her walker. She denied and LOC, or dizziness. She is a poor historian when I evaluated her. During the fall, she sustained a nasal bone fracture which was confirmed here at the hospital. Dr. Garcia with ENT did evaluate the patient and based on where the lesions are sphenoid and ethmoid process, she was not deemed a surgical candidate. and right facial palsy who presents after fall. Oncology did see the patient and it appears treatment options are limited and the family would like to transition to more palliative for medicinal treatment. Destinee is in [place] and her brother, Juvencio is in [place]. The patients would like for her to be in a nursing facility and he would be able to visit her. He is very overwhelmed with caring for her at home, but is not ready to transition to a nursing facility himself, yet. I do think that she is too weak for [facility] from a rehab standpoint, especially with her cancer diagnosis and limited reserve. Past Medical/Surgical History Medical History: SCC of right middle ear with brain metastasis nasal bone fracture deaf in the right ear suspected lesion related HTN PE DVT Family History significant cancers (unknown types), HTN, CAD Social History Smoking Status: Former Smoker History of Alcohol Use: No Drug Use: none Marital Status: Housing Status: lives with family Occupation Status: retired Review of Systems Pt unreliable and appears confused with questions asked - Pt does deny pain and difficulty breathing, she also stated 'nothing hurts' Allergies Coded Allergies: No Known Allergies (Verified , `, 04/28/17) Medications Current Inpatient Medications Medications (Trade) Dose Ordered Sig/Zuly Route Start Time Stop Time Status Last Admin Dose Admin Acetaminophen (Tylenol Tab) 650 mg Q4H PRN PO 08/11/17 17:00 09/10/17 16:59 08/11/17 20:22 650 MG Ondansetron HCl (Zofran Inj) 4 mg Q6H PRN IV 08/11/17 17:00 09/10/17 16:59 Polyethylene (Miralax Powder Packet) 17 gm DAILY PRN PO 08/11/17 17:00 09/10/17 16:59 Calcium/Vitamin D (Caltrate Plus Tab) 1 tab BID PO 08/11/17 21:00 09/10/17 20:59 08/13/17 07:28 1 TAB Dexamethasone (Decadron Tab) 0.5 mg DAILY PO 08/12/17 09:00 09/11/17 08:59 08/13/17 07:28 0.5 MG Donepezil HCl (Aricept Tab) 5 mg HS PO 08/11/17 21:00 09/10/17 20:59 08/12/17 21:57 5 MG Escitalopram Oxalate (Lexapro Tab) 10 mg DAILY PO 08/12/17 09:00 09/11/17 08:59 08/13/17 07:28 10 MG Lisinopril (Zestril Tab) 5 mg QAM PO 08/12/17 09:00 09/11/17 08:59 08/13/17 07:28 5 MG Lorazepam (Ativan Tab) 1 mg HS PO 08/11/17 21:00 09/10/17 20:59 08/12/17 21:57 1 MG Multivitamins (Multivitamin Tab) 1 tab QAM PO 08/12/17 09:00 09/11/17 08:59 08/13/17 07:28 1 TAB Pantoprazole Sodium (Protonix Tab) 40 mg QAM PO 08/12/17 09:00 09/11/17 08:59 08/13/17 07:29 40 MG Rosuvastatin Calcium (Crestor Tab) 10 mg HS PO 08/11/17 21:00 09/10/17 20:59 08/12/17 21:57 10 MG Ferrous Sulfate (Feosol Tab) 325 mg QAM PO 08/12/17 09:00 09/11/17 08:59 08/13/17 07:29 325 MG Meclizine HCl (Antivert Tab) 12.5 mg QAM PO 4/24/18 09:00 09/11/17 08:59 08/13/17 07:28 12.5 MG Meclizine HCl (Antivert Tab) 12.5 mg Q6HWA PRN PO 08/11/17 17:45 09/10/17 17:44 Enoxaparin Sodium (Lovenox Inj) 60 mg QAM SQ 08/12/17 09:00 09/10/17 20:59 08/13/17 07:29 60 MG Morphine Sulfate (MoRPHine SULFATE INJ) 2 mg Q4H PRN IV 08/11/17 18:30 08/25/17 18:29 Physical Exam Date Time Temp Pulse Resp B/P (MAP) Pulse Ox O2 Delivery O2 Flow Rate FiO2 08/13/17 08:00 Room Air 08/13/17 07:31 36.5 78 18 145/73 (97) 95 Room Air 08/13/17 07:18 36.9 74 20 167/82 (110) 97 Room Air 08/12/17 23:59 Room Air 08/12/17 23:17 36.6 82 20 164/69 (100) 96 Room Air 08/12/17 16:05 36.6 82 18 174/83 (113) 96 Room Air 08/12/17 16:00 96 Room Air 08/12/17 12:00 Room Air General Appearance: no apparent distress Respiratory: chest non-tender, lungs clear, normal breath sounds, no respiratory distress, no accessory muscle use Cardiovascular: regular rate, rhythm, no edema, no gallop Abdomen: normal bowel sounds, non tender, soft Neurologic/Psychiatric: + pertinent finding (patient oriented to self and people in the room, but disoriented regarding situation) Laboratory Results Last 24 Hours Test 08/13/17 05:51 White Blood Count 6.26 K/uL Red Blood Count 3.53 M/uL Hemoglobin 11.0 g/dL Hematocrit 31.6 % Mean Corpuscular Volume 89.5 fL Mean Corpuscular Hemoglobin 31.2 pg Mean Corpuscular Hemoglobin Concent 34.8 g/dl Platelet Count 203 K/uL Mean Platelet Volume 8.3 fL Neutrophils (%) (Auto) 76.0 % Lymphocytes (%) (Auto) 13.6 % Monocytes (%) (Auto) 8.3 % Eosinophils (%) (Auto) 1.3 % Basophils (%) (Auto) 0.3 % Neutrophils # (Auto) 4.76 K/uL Lymphocytes # (Auto) 0.85 K/uL Monocytes # (Auto) 0.52 K/uL Eosinophils # (Auto) 0.08 K/uL Basophils # (Auto) 0.02 K/uL RDW Standard Deviation 44.5 fL RDW Coefficient of Variation 13.6 % Immature Granulocyte % (Auto) 0.5 % Immature Granulocyte # (Auto) 0.03 K/uL Sodium Level 136 mmol/L Potassium Level 3.7 mmol/L Chloride Level 104 mmol/L Carbon Dioxide Level 30 mmol/L Anion Gap 2.0 mmol/L Blood Urea Nitrogen 9 mg/dl Creatinine 0.58 mg/dl Est Creatinine Clear Calc Drug Dose 55.1 ml/min Estimated GFR () 96.7 Estimated GFR (Non- 83.5 BUN/Creatinine Ratio 16.4 Random Glucose 87 mg/dl Calcium Level 8.7 mg/dl Assessment & Plan Palliative Performance Scale: 50 % Palliative Care Encounter Goals of Care SCC with brain mets HTN Right ear deafness Palliative Care Recommendations -Per discussion with pt daughter Destinee, would like to transition to SNF pending PT/OT recommendations with reevaluation from there. Family would like to transition with more palliative treatment. Goal to have patient remain in either assisted living, or skilled, or skilled with hospice depending how patient does after SNF short stay. -Recommend Decadron 4mg po BID for decreasing inflammation and also assist with appetite stimulation. -Discussed a POLST form with the family and what that means - today was a lot of information to digest - will readdress the POLST form tomorrow ( , 08/14) -Case management made aware about possibility of SNF option- to present options to family Thank you for consulting us and including us in this patients care. Counseling and Coordination Total time spent 70 minutes with > 50% of that time spent assessing the patient and discussing goals of care with the patients daughter and son in law at the bedside.
--- NOTE | 2017-08-13 12:27 | Progress Note ---
Subjective Date of Service: Aug 13, 2017. Subjective No new complaints today. D/W family. Informed prognosis of 3 months. 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, + epistaxis, no trouble swallowing Respiratory: No cough, sputum, dyspnea at rest or on exertion Cardiovascular: No chest pain, tightness or palpitations Abdomen: No pain, nausea, vomiting, diarrhea or constipation Musculoskeletal: No joint pain, calf pain, swelling, ambulates with use of a walker Neurologic: No weakness, numbness/tingling, + vertigo Psychiatric: hx of anxiety or depression Skin: No rash or itch Objective Vital Signs Date Time Temp Pulse Resp B/P (MAP) Pulse Ox O2 Delivery O2 Flow Rate FiO2 08/13/17 08:00 Room Air 08/13/17 07:31 36.5 78 18 145/73 (97) 95 Room Air 08/13/17 07:18 36.9 74 20 167/82 (110) 97 Room Air 08/12/17 23:59 Room Air 08/12/17 23:17 36.6 82 20 164/69 (100) 96 Room Air 08/12/17 16:05 36.6 82 18 174/83 (113) 96 Room Air 08/12/17 16:00 96 Room Air Physical Exam Comments: General: Patient is awake, alert, no apparent distress Head: Normocephalic, trauma involving the nasal bones, left periorbital cell edema with ecchymosis around the left orbit ENT: PERRL, EOMI, no pharyngeal exudate, mucous membranes moist, Chest: Clear to auscultation, on room air, no adventitious breath sounds Cardiac: Regular rate and rhythm,+ systolic murmur grade III/, no JVD, normal peripheral pulses, good capillary refill Abdominal: NABS x 4 quadrants, soft, nontender to palpation, no rebound, guarding or tenderness, + ecchymosis bilateral lower abdominal quadrants due to Lovenox injections Extremities: Normal inspection, no peripheral edema or erythema, calfs nontender to palpation Psych: Normal mood and affect Neuro: AA oriented to self and place, difficulty recalling events, strength intact bilaterally and related 3/5, no motor deficits, speech is clear, no peripheral sensory deficits Laboratory Results Last 24 Hours Test 08/13/17 05:51 White Blood Count 6.26 K/uL Red Blood Count 3.53 M/uL Hemoglobin 11.0 g/dL Hematocrit 31.6 % Mean Corpuscular Volume 89.5 fL Mean Corpuscular Hemoglobin 31.2 pg Mean Corpuscular Hemoglobin Concent 34.8 g/dl Platelet Count 203 K/uL Mean Platelet Volume 8.3 fL Neutrophils (%) (Auto) 76.0 % Lymphocytes (%) (Auto) 13.6 % Monocytes (%) (Auto) 8.3 % Eosinophils (%) (Auto) 1.3 % Basophils (%) (Auto) 0.3 % Neutrophils # (Auto) 4.76 K/uL Lymphocytes # (Auto) 0.85 K/uL Monocytes # (Auto) 0.52 K/uL Eosinophils # (Auto) 0.08 K/uL Basophils # (Auto) 0.02 K/uL RDW Standard Deviation 44.5 fL RDW Coefficient of Variation 13.6 % Immature Granulocyte % (Auto) 0.5 % Immature Granulocyte # (Auto) 0.03 K/uL Sodium Level 136 mmol/L Potassium Level 3.7 mmol/L Chloride Level 104 mmol/L Carbon Dioxide Level 30 mmol/L Anion Gap 2.0 mmol/L Blood Urea Nitrogen 9 mg/dl Creatinine 0.58 mg/dl Est Creatinine Clear Calc Drug Dose 55.1 ml/min Estimated GFR () 96.7 Estimated GFR (Non- 83.5 BUN/Creatinine Ratio 16.4 Random Glucose 87 mg/dl Calcium Level 8.7 mg/dl Assessment and Plan Syncope vs Seizure disorder 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 - MRI of the brain last done in Mar 2017 showing slight progression of metastasis and increased size of the tumor. - CT maxillofacial reviewed - Case was discussed with Dr. Garcia from ENT - pt appears to have sphenoid, ethmoid sinusitis - however due to her extensive surgical procedure hx involving right maxillary sinus, R lamina papyracea, and metallic foreign body ( which is likely metallic mesh) within the anterior aspect of the R globe it is high risk and unlikely that ENT or maxillofacial surgery would want to perform any procedure on the patient considering her terminal illness. Pt appears to be breathing well through the nose at this time despite epistasix. Can consider outpatient referral to ENT after swelling decreases in 2-3 days if preferred by the pt/family. Appears pt was initially diagnosed by ENT in [facility] by Dr. Bellamy however this provider is retired. - Rad/onc: followed by Dr. Willett with rad/onc who last saw her and determined no further tx options- She has been weaning off dexamethasone as well which could likely contribute to her increased sx of dizziness secondary to swelling. Current dexamethasone dose in 0.5 mg daily, and was scheduled to finish this Friday. -Appreciate neuro input. will obtain EEG. Pt has no hx of seizure activity but is possible with progression of carcinoma with brain mets. - Follow orthostatics - Anaglesia with tylenol, ice for edema, morphine IV 2 mg prn for breakthrough pain - Cont meclizine 12.5 mg Qam and Q6H prn dizziness D/W onc: Patient has a very poor prognosis, -will place patient on dexamethasone 2mg PO BID for palliative purposes to help decrease swelling Squamous cell carcinoma of right middle ear Patient appears that she is not responding to treatment. D/W family. Will obtain palliative care consult and hem onc consult. Patient likely will benefit with hospice given her poor prognosis and lack of improvement from her mets. Hyponatremia likely SIADH -will recheck in AM - mild, Na = 132 - NSS at 80 mL/hr x 10 hrs, follow am prp, possibly contributing to weakness - HTN - stable, continue home lisinopril 5 mg daily Pulmonary nodule - 1.9 cm lobular nodule within the lingula on chest CTA MAGGIE Depression - Continue lexapro Insomnia - Continue donezepril 5 mg HS and ativan 1 mg HS for sleep. Dementia - Mild to moderate per the family - pt will require reorientation and frequently will attempt to get up out of bed which makes her high risk for fall - PT/OT consulted - 1:1 sitter at bedside Elevated TSH = 5.7 - noted, follow as an outpatient for now DVT ppx: lovenox 60 mg subq QAM CODE STATUS: DNR Disposition: From home, lives with , PT/OT to eval; will need SNF or rehab, may transition to hospice if needed. Family to decided Spent 45 minutes on case of patient due to reviewing outpatient records, discussing case with consultants and family.
--- NOTE | 2017-08-13 12:53 | Hematology/Oncology Prog Note ---
Hematology/Onc Progress Note Date of Service Aug 13, 2017. Subjective Patient was rounded on at bedside; her daughter was present and STATION MASTER from palliative care. She states she feels fair today. She does not feel dizziness in her chair; she denies headache or vision change. She was eating lunch. She denies cough or dyspnea. She is very hard of hearing and so history was limited. Review of Systems: Constitutional: + weakness, No fever Eyes: No worsening of vision Respiratory: No cough, No shortness of breath Neurologic: No vertigo Vital Signs Vital Signs Past 12 Hours Date Time Temp Pulse Resp B/P (MAP) Pulse Ox O2 Delivery O2 Flow Rate FiO2 08/13/17 08:00 Room Air 08/13/17 07:31 36.5 78 18 145/73 (97) 95 Room Air 08/13/17 07:18 36.9 74 20 167/82 (110) 97 Room Air Physical Exam Constitutional: Level of Distress: NAD, chronically ill Head: with evidence of injury (nose with swelling and ecchymosis) Lungs: Respiratory Effort: no dyspnea Laboratory 08/13/17 05:51 Red Blood Count 3.53, Mean Corpuscular Volume 89.5, Mean Corpuscular Hemoglobin 31.2, Mean Corpuscular Hemoglobin Concent 34.8, Mean Platelet Volume 8.3, Neutrophils (%) (Auto) 76.0, Lymphocytes (%) (Auto) 13.6, Monocytes (%) (Auto) 8.3, Eosinophils (%) (Auto) 1.3, Basophils (%) (Auto) 0.3, Neutrophils # (Auto) 4.76, Lymphocytes # (Auto) 0.85, Monocytes # (Auto) 0.52, Eosinophils # (Auto) 0.08, Basophils # (Auto) 0.02 08/13/17 05:51 Test 08/13/17 05:51 White Blood Count 6.26 K/uL (4.8-10.8) Red Blood Count 3.53 M/uL (4.2-5.4) Hemoglobin 11.0 g/dL (12.0-16.0) Hematocrit 31.6 % (37-47) Mean Corpuscular Volume 89.5 fL (80-100) Mean Corpuscular Hemoglobin 31.2 pg (25-34) Mean Corpuscular Hemoglobin Concent 34.8 g/dl (32-36) Platelet Count 203 K/uL (130-400) Mean Platelet Volume 8.3 fL (7.4-10.4) Neutrophils (%) (Auto) 76.0 % Lymphocytes (%) (Auto) 13.6 % Monocytes (%) (Auto) 8.3 % Eosinophils (%) (Auto) 1.3 % Basophils (%) (Auto) 0.3 % Neutrophils # (Auto) 4.76 K/uL (1.4-6.5) Lymphocytes # (Auto) 0.85 K/uL (1.2-3.4) Monocytes # (Auto) 0.52 K/uL (0.11-0.59) Eosinophils # (Auto) 0.08 K/uL (0-0.5) Basophils # (Auto) 0.02 K/uL (0-0.2) RDW Standard Deviation 44.5 fL (36.4-46.3) RDW Coefficient of Variation 13.6 % (11.5-14.5) Immature Granulocyte % (Auto) 0.5 % Immature Granulocyte # (Auto) 0.03 K/uL (0.00-0.02) Anion Gap 2.0 mmol/L (3-11) Est Creatinine Clear Calc Drug Dose 55.1 ml/min Estimated GFR () 96.7 Estimated GFR (Non- 83.5 BUN/Creatinine Ratio 16.4 (10-20) Calcium Level 8.7 mg/dl (8.5-10.1) Assessment & Plan 1. 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 Traumatic fall with facial injury * Patient, family, and STATION MASTER from palliative medicine present at time of rounds * Palliative measures paramount at this time * No active treatment for brain metastasis at this time * For palliative measures, Dr. Willett would like to continue decadron 2 mg twice daily for vasogenic edema from mets and appetite stimulation * Palliative care is arranging for SNF on discharge, option for hospice if rapid decline of PS * Spoke with Dr. Cruz and he is aware of treatment plan I have discussed the patient's case, impression and plan with Lakisha Neri. Her note reflects my findings and plan. Dr. Bebo Willett Hem/Onc
[2017-08-13 14:39] VITALS: BP 112/68; PULSE 81; TEMP 36.5; O2SAT 95
[2017-08-13] MEDS: DONEPEZIL HCL 5 MG TAB PO SCH (21:03)
[2017-08-13] MEDS: ROSUVASTATIN CALCIUM 10 MG TAB PO SCH (21:03)
[2017-08-13] MEDS: LORAZEPAM 1 MG TAB PO SCH (21:03)
[2017-08-13 22:40] VITALS: BP 166/72; PULSE 76
[2017-08-13 23:02] VITALS: BP 172/76; PULSE 77; TEMP 36.7; O2SAT 96
[2017-08-14 07:53] VITALS: BP 160/85; PULSE 76; TEMP 36.6; O2SAT 97
[2017-08-14 08:19] LABS: BASO % 0.1 %; BASO ABS # 0.01 K/uL (0-0.2); EOS % 0.1 %; EOS ABS # 0.01 K/uL (0-0.5); HEMATOCRIT 31.6 % (37-47); HEMOGLOBIN 10.8 g/dL (12.0-16.0); IG# 0.03 K/uL (0.00-0.02); LYMPH % 9.4 %; LYMPH ABS # 0.88 K/uL (1.2-3.4); MEAN CELL VOLUME 89.3 fL (80-100); MEAN CORPUSCULAR HEMOGLOBIN 30.5 pg (25-34); MEAN CORPUSCULAR HGB CONC 34.2 g/dl (32-36); MEAN PLATELET VOLUME 8.3 fL (7.4-10.4); MONO % 4.3 %; NEUT % 85.8 %; NEUT ABS # 7.99 K/uL (1.4-6.5); PLATELET COUNT 225 K/uL (130-400); RED CELL DISTRIBUTION WIDTH CV 13.4 % (11.5-14.5); RED CELL DISTRIBUTION WIDTH SD 43.9 fL (36.4-46.3); WHITE BLOOD COUNT 9.32 K/uL (4.8-10.8)
[2017-08-14] MEDS: DEXAMETHASONE 1 MG TAB PO SCH ×2 (08:29→20:29)
[2017-08-14] MEDS: ESCITALOPRAM OXALATE 10 MG TAB PO SCH (08:29)
[2017-08-14] MEDS: MECLIZINE HCL 12.5 MG TAB PO SCH (08:29)
[2017-08-14] MEDS: MULTIVITAMIN TAB PO SCH (08:30)
[2017-08-14] MEDS: LISINOPRIL 5 MG TAB PO SCH (08:30)
[2017-08-14] MEDS: FERROUS SULFATE 325 MG TAB PO SCH (08:30)
[2017-08-14] MEDS: CALCIUM 600MG + VIT D 400 IU TAB PO SCH ×2 (08:30→20:29)
[2017-08-14] MEDS: PANTOprazole SOD 40 MG TAB PO SCH (08:30)
[2017-08-14] MEDS: ENOXAPARIN 60 MG/0.6 ML SYR SQ SCH (08:38)
[2017-08-14 12:01] VITALS: BP 148/74
--- NOTE | 2017-08-14 15:29 | Palliative Care Progress Note ---
Palliative Care Progress Note Date of Service Aug 14, 2017. 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 She has been seen for follow up today. She continues to be a poor historian, but states 'no dear' when I ask her if she is in pain. I do not feel she has the mental capacity to understand the complexity of her condition. I did touch base with her daughter, Destinee, to discuss any questions. The plan is to move forward with [facility] for interim period and see how she does from there. Her is in support of this as well. Currently, on assessment, patient is lying in bed, awake. She was able to follow commands and is quite strong with 4/5 strength B/L UE and LE. Patient continues to have occular ecchymosis. Will await discharge planning from case management. Review of Systems Patient denies CP, SOB, dizziness, KYLE, swelling, pain Objective Vital Signs Date Time Temp Pulse Resp B/P (MAP) Pulse Ox O2 Delivery O2 Flow Rate FiO2 08/14/17 12:01 148/74 (98) 08/14/17 07:53 36.6 76 16 160/85 (110) 97 Room Air 08/14/17 07:21 Room Air 08/14/17 00:00 Room Air 08/13/17 23:02 36.7 77 16 172/76 (108) 96 Room Air 08/13/17 22:40 76 166/72 (103) 08/13/17 16:00 Room Air Physical Exam General Appearance: no apparent distress ENT: + pertinent finding (left orbital ecchymosis s/p fall) Neck: no JVD Respiratory/Chest: lungs clear, normal breath sounds, no respiratory distress, no accessory muscle use Cardiovascular: regular rate, rhythm, no edema, no gallop, no JVD, no murmur Abdomen: normal bowel sounds, non tender, soft Extremities: normal range of motion, non-tender, no pedal edema, no calf tenderness Neurologic/Psychiatric: + pertinent finding (oriented to self and location - confused with situation) Skin: normal color, warm/dry Laboratory Results Last 24 Hours Test 08/14/17 07:47 White Blood Count 9.32 K/uL Red Blood Count 3.54 M/uL Hemoglobin 10.8 g/dL Hematocrit 31.6 % Mean Corpuscular Volume 89.3 fL Mean Corpuscular Hemoglobin 30.5 pg Mean Corpuscular Hemoglobin Concent 34.2 g/dl Platelet Count 225 K/uL Mean Platelet Volume 8.3 fL Neutrophils (%) (Auto) 85.8 % Lymphocytes (%) (Auto) 9.4 % Monocytes (%) (Auto) 4.3 % Eosinophils (%) (Auto) 0.1 % Basophils (%) (Auto) 0.1 % Neutrophils # (Auto) 7.99 K/uL Lymphocytes # (Auto) 0.88 K/uL Monocytes # (Auto) 0.40 K/uL Eosinophils # (Auto) 0.01 K/uL Basophils # (Auto) 0.01 K/uL RDW Standard Deviation 43.9 fL RDW Coefficient of Variation 13.4 % Immature Granulocyte % (Auto) 0.3 % Immature Granulocyte # (Auto) 0.03 K/uL Assessment and Plan Palliative Care Encounter Goals of Care SCC with brain mets HTN Right ear deafness Palliative Care Recommendations -Per discussion with pt daughter Destinee, would like to transition to SNF pending PT/OT recommendations with reevaluation from there. Family would like to transition with more palliative treatment. Goal to have patient remain in either assisted living, or skilled, or skilled with hospice depending how patient does after SNF short stay. -Recommend Decadron 4mg po BID for decreasing inflammation and also assist with appetite stimulation. -Discussed a POLST form with the family and what that means - today was a lot of information to digest - will readdress the POLST form tomorrow (Friday, ) Palliative Performance Scale: 50 % Counseling and Coordination Total time spent 35 minutes with > 50% of that time assessing patient and discussing goals of care and discharge planning with patient daughter
--- NOTE | 2017-08-14 15:40 | Progress Note ---
Subjective Date of Service: Aug 14, 2017. Subjective Patient today has no new complaints. 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, + epistaxis, no trouble swallowing Respiratory: No cough, sputum, dyspnea at rest or on exertion Cardiovascular: No chest pain, tightness or palpitations Abdomen: No pain, nausea, vomiting, diarrhea or constipation Musculoskeletal: No joint pain, calf pain, swelling, ambulates with use of a walker Neurologic: No weakness, numbness/tingling, + vertigo Psychiatric: hx of anxie Medications Current Inpatient Medications Medications (Trade) Dose Ordered Sig/Zuly Route Start Time Stop Time Status Last Admin Dose Admin Acetaminophen (Tylenol Tab) 650 mg Q4H PRN PO 08/11/17 17:00 09/10/17 16:59 08/11/17 20:22 650 MG Ondansetron HCl (Zofran Inj) 4 mg Q6H PRN IV 08/11/17 17:00 09/10/17 16:59 Polyethylene (Miralax Powder Packet) 17 gm DAILY PRN PO 08/11/17 17:00 09/10/17 16:59 Calcium/Vitamin D (Caltrate Plus Tab) 1 tab BID PO 08/11/17 21:00 09/10/17 20:59 08/14/17 20:29 1 TAB Donepezil HCl (Aricept Tab) 5 mg HS PO 08/11/17 21:00 09/10/17 20:59 08/14/17 20:29 5 MG Escitalopram Oxalate (Lexapro Tab) 10 mg DAILY PO 08/12/17 09:00 09/11/17 08:59 08/14/17 08:29 10 MG Lisinopril (Zestril Tab) 5 mg QAM PO 08/12/17 09:00 09/11/17 08:59 08/14/17 08:30 5 MG Lorazepam (Ativan Tab) 1 mg HS PO 08/11/17 21:00 09/10/17 20:59 08/14/17 20:29 1 MG Multivitamins (Multivitamin Tab) 1 tab QAM PO 08/12/17 09:00 09/11/17 08:59 08/14/17 08:30 1 TAB Pantoprazole Sodium (Protonix Tab) 40 mg QAM PO 08/12/17 09:00 09/11/17 08:59 08/14/17 08:30 40 MG Rosuvastatin Calcium (Crestor Tab) 10 mg HS PO 08/11/17 21:00 09/10/17 20:59 08/14/17 20:29 10 MG Ferrous Sulfate (Feosol Tab) 325 mg QAM PO 08/12/17 09:00 09/11/17 08:59 08/14/17 08:30 325 MG Meclizine HCl (Antivert Tab) 12.5 mg QAM PO 08/12/17 09:00 09/11/17 08:59 08/14/17 08:29 12.5 MG Meclizine HCl (Antivert Tab) 12.5 mg Q6HWA PRN PO 08/11/17 17:45 09/10/17 17:44 Enoxaparin Sodium (Lovenox Inj) 60 mg QAM SQ 08/12/17 09:00 09/10/17 20:59 08/14/17 08:38 60 MG Morphine Sulfate (MoRPHine SULFATE INJ) 2 mg Q4H PRN IV 08/11/17 18:30 08/25/17 18:29 Dexamethasone (Decadron Tab) 2 mg BID PO 08/13/17 21:00 09/12/17 20:59 08/14/17 20:29 2 MG Objective Vital Signs Date Time Temp Pulse Resp B/P (MAP) Pulse Ox O2 Delivery O2 Flow Rate FiO2 08/14/17 12:01 148/74 (98) 08/14/17 07:53 36.6 76 16 160/85 (110) 97 Room Air 08/14/17 07:21 Room Air 08/14/17 00:00 Room Air 08/13/17 23:02 36.7 77 16 172/76 (108) 96 Room Air 08/13/17 22:40 76 166/72 (103) 08/13/17 16:00 Room Air Physical Exam Comments: General: Patient is awake, alert, no apparent distress Head: Normocephalic, trauma involving the nasal bones, left periorbital cell edema with ecchymosis around the left orbit ENT: PERRL, EOMI, no pharyngeal exudate, mucous membranes moist, Chest: Clear to auscultation, on room air, no adventitious breath sounds Cardiac: Regular rate and rhythm,+ systolic murmur grade III/, no JVD, normal peripheral pulses, good capillary refill Abdominal: NABS x 4 quadrants, soft, nontender to palpation, no rebound, guarding or tenderness, + ecchymosis bilateral lower abdominal quadrants due to Lovenox injections Extremities: Normal inspection, no peripheral edema or erythema, calfs nontender to palpation Psych: Normal mood and affect Neuro: AA oriented to self and place, difficulty recalling events, strength intact bilaterally and related 3/5, no motor deficits, speech is clear, no peripheral sensory deficits Laboratory Results Last 24 Hours Test 08/14/17 07:47 White Blood Count 9.32 K/uL Red Blood Count 3.54 M/uL Hemoglobin 10.8 g/dL Hematocrit 31.6 % Mean Corpuscular Volume 89.3 fL Mean Corpuscular Hemoglobin 30.5 pg Mean Corpuscular Hemoglobin Concent 34.2 g/dl Platelet Count 225 K/uL Mean Platelet Volume 8.3 fL Neutrophils (%) (Auto) 85.8 % Lymphocytes (%) (Auto) 9.4 % Monocytes (%) (Auto) 4.3 % Eosinophils (%) (Auto) 0.1 % Basophils (%) (Auto) 0.1 % Neutrophils # (Auto) 7.99 K/uL Lymphocytes # (Auto) 0.88 K/uL Monocytes # (Auto) 0.40 K/uL Eosinophils # (Auto) 0.01 K/uL Basophils # (Auto) 0.01 K/uL RDW Standard Deviation 43.9 fL RDW Coefficient of Variation 13.4 % Immature Granulocyte % (Auto) 0.3 % Immature Granulocyte # (Auto) 0.03 K/uL Assessment and Plan Syncope vs Seizure disorder 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 - MRI of the brain last done in Mar 2017 showing slight progression of metastasis and increased size of the tumor. - CT maxillofacial reviewed - Case was discussed with Dr. Garcia from ENT - pt appears to have sphenoid, ethmoid sinusitis - however due to her extensive surgical procedure hx involving right maxillary sinus, R lamina papyracea, and metallic foreign body ( which is likely metallic mesh) within the anterior aspect of the R globe it is high risk and unlikely that ENT or maxillofacial surgery would want to perform any procedure on the patient considering her terminal illness. Pt appears to be breathing well through the nose at this time despite epistasix. Can consider outpatient referral to ENT after swelling decreases in 2-3 days if preferred by the pt/family. Appears pt was initially diagnosed by ENT in [facility] by Dr. Bellamy however this provider is retired. - Rad/onc: followed by Dr. Willett with rad/onc who last saw her and determined no further tx options- She has been weaning off dexamethasone as well which could likely contribute to her increased sx of dizziness secondary to swelling. Current dexamethasone dose in 0.5 mg daily, and was scheduled to finish this Friday. -Appreciate neuro input. will obtain EEG. Pt has no hx of seizure activity but is possible with progression of carcinoma with brain mets. - Follow orthostatics - Anaglesia with tylenol, ice for edema, morphine IV 2 mg prn for breakthrough pain - Cont meclizine 12.5 mg Qam and Q6H prn dizziness D/W onc: Patient has a very poor prognosis, -will place patient on dexamethasone 2mg PO BID for palliative purposes to help decrease swelling. -Family is deciding on choice of facility. Squamous cell carcinoma of right middle ear Patient appears that she is not responding to treatment. D/W family. Will obtain palliative care consult and hem onc consult. Patient likely will benefit with hospice given her poor prognosis and lack of improvement from her mets. Hyponatremia likely SIADH -will recheck in AM - mild, Na = 132 - NSS at 80 mL/hr x 10 hrs, follow am prp, possibly contributing to weakness - HTN - stable, continue home lisinopril 5 mg daily Pulmonary nodule - 1.9 cm lobular nodule within the lingula on chest CTA MAGGIE Depression - Continue lexapro Insomnia - Continue donezepril 5 mg HS and ativan 1 mg HS for sleep. Dementia - Mild to moderate per the family - pt will require reorientation and frequently will attempt to get up out of bed which makes her high risk for fall - PT/OT consulted - 1:1 sitter at bedside Elevated TSH = 5.7 - noted, follow as an outpatient for now DVT ppx: lovenox 60 mg subq QAM CODE STATUS: DNR Disposition: From home, lives with , PT/OT to eval; will need SNF or rehab, may transition to hospice if needed. Family to decide Spent 45 minutes on case of patient due to reviewing outpatient records, discussing case with consultants and family.
[2017-08-14 15:42] VITALS: BP 112/71; PULSE 82; TEMP 36.6; O2SAT 94
[2017-08-14 16:00] VITALS: O2SAT 94
[2017-08-14] MEDS: ROSUVASTATIN CALCIUM 10 MG TAB PO SCH (20:29)
[2017-08-14] MEDS: LORAZEPAM 1 MG TAB PO SCH (20:29)
[2017-08-14] MEDS: DONEPEZIL HCL 5 MG TAB PO SCH (20:29)
[2017-08-14 22:02] VITALS: BP 146/78; PULSE 81; TEMP 36.4; O2SAT 97
[2017-08-15 07:28] VITALS: BP 146/82; PULSE 78; TEMP 36.4; O2SAT 97
[2017-08-15 08:00] VITALS: O2SAT 97
[2017-08-15] MEDS: FERROUS SULFATE 325 MG TAB PO SCH (08:29)
[2017-08-15] MEDS: MULTIVITAMIN TAB PO SCH (08:29)
[2017-08-15] MEDS: ESCITALOPRAM OXALATE 10 MG TAB PO SCH (08:29)
[2017-08-15] MEDS: PANTOprazole SOD 40 MG TAB PO SCH (08:30)
[2017-08-15] MEDS: MECLIZINE HCL 12.5 MG TAB PO SCH (08:30)
[2017-08-15] MEDS: CALCIUM 600MG + VIT D 400 IU TAB PO SCH (08:30)
[2017-08-15] MEDS: DEXAMETHASONE 1 MG TAB PO SCH (08:30)
[2017-08-15] MEDS: ENOXAPARIN 60 MG/0.6 ML SYR SQ SCH (08:33)
[2017-08-15] MEDS: LISINOPRIL 5 MG TAB PO SCH (08:56)
[2017-08-15] MEDS ORDERED: ENOX60IN SQ (14:53)
[2017-08-15] MEDS ORDERED: DXM1 PO (14:53)
--- NOTE | 2017-08-15 14:55 | Discharge Instructions ---
Discharge Instructions Date of Service Aug 15, 2017. Admission Reason for Admission: Syncope And Collapse Discharge Discharge Diagnosis / Problem: Syncope and collapse Discharge Goals Goal(s): Decrease discomfort, Improve function Activity Recommendations Activity Limitations: as noted below Lifting Limitations: gradually increase as tolerated . Instructions / Follow-Up Instructions / Follow-Up [facility] for [facility] facility. May be a candidate for hospice care in near future. May followup with PCP in 1-2 weeks Current Hospital Diet Patient's current hospital diet: Regular Diet Discharge Diet Recommended Diet: Regular Diet Pending Studies Studies pending at discharge: no Medical Emergencies . Who to Call and When: Medical Emergencies: If at any time you feel your situation is an emergency, please call 911 immediately. . Non-Emergent Contact Non-Emergency issues call your: Primary Care Provider Call Non-Emergent contact if: you have any medication questions . . "Provider Documentation" section prepared by Jaden Cruz. .
[2017-08-15 15:34] VITALS: BP 146/82; PULSE 78; TEMP 36.4; O2SAT 97
[2017-08-15] MEDS ORDERED: ATV/1 PO (16:36)
--- NOTE | 2017-08-20 06:57 | Discharge Summary ---
Discharge Summary Date of Service July 26, 2017. Discharge Summary Admission Date: Aug 11, 2017 at 17:05 Discharge Date: Aug 15, 2017 Discharge Disposition: snf facility Principal Diagnosis: Sybcope 2nd to Squamous Cell Carcinoma or R middel ear with mets to brain Immunizations: Have You Had Influenza Vaccine: N/A History of Tetanus Vaccine?: Yes History of Pneumococcal: Yes History of Hepatitis B Vaccine: No Consultations: Hem/Onc, Palliative care Medication Reconciliation New Medications: Dexamethasone (Dexamethasone) 1 Mg Tab 2 MG PO BID for 30 Days, #120 TAB 1 Refill Changed Medications: Enoxaparin (Lovenox) 60 Mg/0.6 Ml Inj 50 MG SQ QPM for 30 Days, #30 (Changed from: 60 MG) Continued Medications: Calcium/Vitamin D (Os-Jaspreet 500 Plus D) Tab 1 TAB PO BID Donepezil HCl (Donepezil HCl) 5 Mg Tab 5 MG PO HS Escitalopram Oxalate (Escitalopram Oxalate) 10 Mg Tab 10 MG PO DAILY Ferrous Sulfate (Kp Ferrous Sulfate) 325 Mg Tab 325 MG PO DAILY Lisinopril (Zestril) 5 Mg Tab 5 MG PO QAM, TAB Lorazepam (Ativan) 1 Mg Tab 1 MG PO HS for 30 Days, #30 TAB (This prescription has been renewed) Meclizine HCl (Meclizine HCl) 12.5 Mg Tab 12.5 MG PO QAM for 30 Days and q6h as needed for dizziness Multivitamin (Multivitamin) Tab 1 TAB PO QAM, TAB Pantoprazole (Protonix) 40 Mg Tab 40 MG PO QAM Rosuvastatin Calcium (Crestor) 10 Mg Tab 10 MG PO HS Discontinued Medications: Dexamethasone (Decadron) 4 Mg Tab 0.5 MG PO DAILY Discharge Exam Review of Systems Constitutional: No fever, sweats or chills Eyes: No diplopia, no worsening or blurred vision ENT: Hard of hearing, 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, + epistaxis, no trouble swallowing Respiratory: No cough, sputum, dyspnea at rest or on exertion Cardiovascular: No chest pain, tightness or palpitations Abdomen: No pain, nausea, vomiting, diarrhea or constipation Musculoskeletal: No joint pain, calf pain, swelling, ambulates with use of a walker Neurologic: No weakness, numbness/tingling, + vertigo Psychiatric: hx of anxie Physical Exam Comments: General: Patient is awake, alert, no apparent distress Head: Normocephalic, trauma involving the nasal bones, left periorbital cell edema with ecchymosis around the left orbit ENT: PERRL, EOMI, no pharyngeal exudate, mucous membranes moist, Chest: Clear to auscultation, on room air, no adventitious breath sounds Cardiac: Regular rate and rhythm,+ systolic murmur grade III/, no JVD, normal peripheral pulses, good capillary refill Abdominal: NABS x 4 quadrants, soft, nontender to palpation, no rebound, guarding or tenderness, + ecchymosis bilateral lower abdominal quadrants due to Lovenox injections Extremities: Normal inspection, no peripheral edema or erythema, calfs nontender to palpation Psych: Normal mood and affect Neuro: AA oriented to self and place, difficulty recalling events, strength intact bilaterally and related 3/5, no motor deficits, speech is clear, no peripheral sensory deficits Hospital Course Syncope vs Seizure disorder 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 - MRI of the brain last done in Mar 2017 showing slight progression of metastasis and increased size of the tumor. - CT maxillofacial reviewed - Case was discussed with Dr. Garcia from ENT - pt appears to have sphenoid, ethmoid sinusitis - however due to her extensive surgical procedure hx involving right maxillary sinus, R lamina papyracea, and metallic foreign body ( which is likely metallic mesh) within the anterior aspect of the R globe it is high risk and unlikely that ENT or maxillofacial surgery would want to perform any procedure on the patient considering her terminal illness. Pt appears to be breathing well through the nose at this time despite epistasix. Can consider outpatient referral to ENT after swelling decreases in 2-3 days if preferred by the pt/family. Appears pt was initially diagnosed by E[place] [facility] [place]. Bellamy however this provider is retired. - Rad/onc: followed by Dr. Willett with rad/onc who last saw her and determined no further tx options- She has been weaning off dexamethasone as well which could likely contribute to her increased sx of dizziness secondary to swelling. Current dexamethasone dose in 0.5 mg daily, and was scheduled to finish this Friday. -Appreciate neuro input. will obtain EEG. Pt has no hx of seizure activity but is possible with progression of carcinoma with brain mets. - Follow orthostatics - [place] with tylenol, ice for edema, morphine IV 2 mg prn for breakthrough pain - Cont meclizine 12.5 mg Qam and Q6H prn dizziness D/W onc: Patient has a very poor prognosis, -will place patient on dexamethasone 2mg PO BID for palliative purposes to help decrease swelling. -Family decided on faiclty. will be discharged on 2mg of dexamethasone -d/w family regarding side effects. Family does not want to moniotr blood sugars given the limited life expectancy. Squamous cell carcinoma of right middle ear Patient appears that she is not responding to treatment. D/W family. Will obtain palliative care consult and hem onc consult. Patient likely will benefit with hospice given her poor prognosis and lack of improvement from her mets. Hyponatremia likely SIADH -will recheck in AM - mild, Na = 132 - NSS at 80 mL/hr x 10 hrs, follow am prp, possibly contributing to weakness - HTN - stable, continue home lisinopril 5 mg daily Pulmonary nodule - 1.9 cm lobular nodule within the lingula on chest CTA MAGGIE Depression - Continue lexapro Insomnia - Continue donezepril 5 mg HS and ativan 1 mg HS for sleep. Dementia - Mild to moderate per the family - pt will require reorientation and frequently will attempt to get up out of bed which makes her high risk for fall - PT/OT consulted - 1:1 sitter at bedside Elevated TSH = 5.7 - noted, follow as an outpatient for now DVT ppx: lovenox 60 mg subq QAM CODE STATUS: DNR Disposition: From home, lives with , PT/OT to [facility]; will need SNF or rehab, may transition to hospice if needed. Family to decide Spent 45 minutes on case of patient due to reviewing outpatient records, discussing case with consultants and family. Total Time Spent: Greater than 30 minutes This includes examination of the patient, discharge planning, medication reconciliation, and communication with other providers. Discharge Instructions Please refer to the electronic Patient Visit Report (Discharge Instructions) for additional information.
== END 2017-08-15 16:10 | DRG 54 ==
LOC: EDBD 14:11 → C.EDB 14:13 → C.2T 17:05 → ENRESERV 17:14 → C.MS2W 08-12 16:04
PROVIDERS: ADMIT Internal Medicine; ATTEND Internal Medicine Sports Medicine
DX: C79.31 Secondary malignant neoplasm of brain (principal); G93.6 Cerebral edema; E22.2 Syndrome of inappropriate secretion of antidiuretic hormone; F03.90 Unspecified dementia, unspecified severity, without behavioral disturbance, psychotic disturbance, mood disturbance, and anxiety; J32.2 Chronic ethmoidal sinusitis; M71.21 Synovial cyst of popliteal space [Baker], right knee; S00.83XA Contusion of other part of head, initial encounter; F41.1 Generalized anxiety disorder; J32.3 Chronic sphenoidal sinusitis; Z86.718 Personal history of other venous thrombosis and embolism; Z86.711 Personal history of pulmonary embolism; Z87.891 Personal history of nicotine dependence; W07.XXXA Fall from chair, initial encounter; Y92.019 Unspecified place in single-family (private) house as the place of occurrence of the external cause; S02.2XXA Fracture of nasal bones, initial encounter for closed fracture; C30.1 Malignant neoplasm of middle ear; Z92.3 Personal history of irradiation; I10 Essential (primary) hypertension; K21.9 Gastro-esophageal reflux disease without esophagitis; G47.00 Insomnia, unspecified; H91.91 Unspecified hearing loss, right ear